=== PATIENT | male | born 1955 | race Caucasian/White ===

== ENCOUNTER 2021-10-05 14:03 | Inpatient (IN) | payer OTHER, SELFPAY ==
[2021-10-05] VITALS (12 sets, daily range): BP systolic 166–193; BP diastolic 52–86; PULSE 79–92; RESP 17–26; TEMP 36.6–37.4; O2SAT 92–99; BMI 38.5
--- NOTE | 2021-10-05 14:31 | DI.US.S_ITS ---
PROCEDURE: US PERIPH VENOUS LOW EXTREM LT INDICATIONS: LEG PAIN TECHNIQUE: Real-time imaging, as well as color and pulse Doppler interrogation, were performed of the lower extremity deep veins from the inguinal ligament to the popliteal fossa. COMPARISON: None. FINDINGS: The common femoral, femoral and popliteal veins are normally compressible, and free of intraluminal thrombus. Color and pulse Doppler demonstrate normal phasic intraluminal flow. There is normal augmentation response to distal compression maneuver. IMPRESSION: No sonographic evidence of DVT. Dictated by: Sergio Santoyo M.D. on 10/05/2021 at 16:39 Approved by: Sergio Santoyo M.D. on 10/05/2021 at 16:40
[2021-10-05 15:18] LABS: INR 1.2 (0.9-1.3); Prothrombin Time 13.4 SECONDS (10.1-12.7)
[2021-10-05 15:22] LABS: Lactate (Lactic Acid) 1.4 mmol/L (0.7-2.1)
[2021-10-05 15:23] LABS: Alanine Aminotransferase 63 IU/L (<50); Albumin 3.5 g/dL (3.5-5.0); Albumin Globulin Ratio 1.1 (1.0-2.8); Alkaline Phosphatase 290 U/L (38-126); Aspartate Aminotransferase 56 IU/L (17-59); BUN Creatinine Ratio 24.8 (6-22); Bilirubin Total 1.2 mg/dL (0.2-1.3); Blood Urea Nitrogen 26 mg/dL (9-20); Calcium 8.6 mg/dL (8.4-10.2); Carbon Dioxide 24 mmol/L (22-32); Chloride 97 mmol/L (98-107); Estimated Glomerular Filt Rate > 60 mL/min (>60); Globulin 3.1 g/dL (1.7-4.1); Glucose 301 mg/dL (80-110); HEMOLYSIS < 15 (0-50); Lipase 59 U/L (23-300); Potassium 3.9 mmol/L (3.4-5.1); Sodium 128 mmol/L (137-145); Total Protein 6.6 g/dL (6.3-8.2)
[2021-10-05 15:27] LABS: Add Manual Diff / Slide Review NO; Basophils Absolute Auto 100 /uL (0-100); Basophils Percent Auto 0.3 % (0-2); Eosinophils Absolute Auto 100 /uL (0-450); Eosinophils Percent Auto 0.4 % (2-4); Hematocrit 34.7 % (41-53); Hemoglobin 11.5 g/dL (13.5-17.5); Lymphocytes Absolute Auto 500 /uL (1100-4500); Lymphocytes Percent Auto 2.7 % (25-40); Mean Corpuscular Hemoglobin 27.5 PG (26-34); Mean Corpuscular Volume 83.2 fL (80-100); Monocytes Absolute Auto 1000 /uL (0-900); Monocytes Percent Auto 5.4 % (3-14); Neutrophils Absolute Auto 16800 /uL (1500-7000); Neutrophils Percent Auto 91.2 % (50-75); Platelet Count 152 X10^3/uL (150-400); Red Blood Cell Count 4.17 X10^6/uL (4.5-5.9); White Blood Cell Count 18.4 X10^3/uL (4.5-11.0)
[2021-10-05 15:32] LABS: COVID19 -Nasal RAPID Negative (Negative)
--- NOTE | 2021-10-05 17:01 | ED_ITS ---
HPI - Extremity Problem General Chief complaint: Extremity Problem,Nontraumatic Stated complaint: Swelling/ pain in lt low leg x4 days-sent by [facility] Time Seen by Provider: 10/05/21 17:00 Source: patient Mode of arrival: Ambulatory History of Present Illness HPI Narrative: Patient is a 66-year-old male with history of insulin-dependent diabetes, coronary artery disease, hypertension hyperlipidemia presenting today with left leg pain and redness. He said 4 days ago he started having fever and body aches. He fell getting up going to the bathroom 3 days ago. He does not remember an injury. He has been able to weightbear ever since however it was on his left leg and that leg has progressively gotten more painful and red. He says that he may also be experiencing some mild increase in shortness of breath but his biggest complaint is his leg. He denies absolutely any chest pain or palpitations. He denies any cough. No painful or frequent urination. Related Data Home Medications Medication Instructions Recorded Confirmed amlodipine 5 mg tablet 5 mg PO DAILY 10/05/21 10/05/21 atorvastatin 20 mg tablet 20 mg PO DAILY 10/05/21 10/05/21 carvedilol 25 mg tablet 25 mg PO DAILY 10/05/21 10/05/21 empagliflozin 25 mg tablet 25 mg PO DAILY 10/05/21 10/05/21 (Jardiance) famotidine 20 mg tablet 20 mg PO DAILY 10/05/21 10/05/21 glipizide 10 mg tablet 10 mg PO DAILY 10/05/21 10/05/21 insulin NPH isoph U-100 human 100 unit SUBCUT 10/05/21 unit/mL subcutaneous suspension (Humulin N NPH U-100 Insulin (isophane susp)) losartan 50 mg tablet 50 mg PO DAILY 10/05/21 10/05/21 metformin 500 mg tablet,extended 500 mg PO DAILY 10/05/21 10/05/21 release 24 hr Allergies Allergy/AdvReac Type Severity Reaction Status Date / Time promethazine [From Phenergan] AdvReac Vomiting Verified 10/05/21 14:26 Review of Systems Review of Systems Narrative: GENERAL: See HPI HEENT: Denies sinus pain, ear pain, sore throat, difficulty swallowing, neck pain RESPIRATORY: Denies dyspnea, cough, wheezing, hemoptysis, sputum. CARDIOVASCULAR: Denies chest pain, palpitations, orthopnea, edema GASTROINTESTINAL: Denies nausea, vomiting, abdominal pain, diarrhea, constipation, melena. : Denies dysuria, frequency, incontinence, hematuria, urinary retention, flank pain. MUSCULOSKELETAL: See HPI SKIN: See HPI NEUROLOGIC: Denies weakness, dizziness, headache, numbness, change in speech, confusion PSYCHIATRIC: No concerning psychosocial issues. 12 point review of systems is negative except for those stated above and HPI Patient History Social History Smoking Status: Never smoker Smoking Status: Never smoker alcohol intake frequency: holidays/special occasions only Substance Use Type: does not use Exam Initial Vital Signs Initial Vital Signs: Vital Signs Temperature 98 F 10/05/21 14:21 Pulse Rate 79 10/05/21 14:21 Respiratory Rate 17 10/05/21 14:21 Blood Pressure 193/86 H 10/05/21 14:21 Pulse Oximetry 99 10/05/21 14:21 GENERAL: Alert 66-year-old male appears uncomfortable HEENT: Head atraumatic,EOMI, pupils reactive, face symmetric, moist mucous membranes CARDIOVASCULAR: Regular rate and rhythm without murmurs, rubs or gallops. RESPIRATORY: Breath sounds equal bilaterally, no wheezes rales or rhonchi. ABDOMEN: Soft, nontender. Normoactive bowel sounds all 4 quadrants. No guarding or rebound. EXTREMITIES: Normal range of motion, no clubbing or edema. Neurovascularly intact Left leg able to flex and extend the ankle intact distal pedal pulse intact NEUROLOGICAL: Alert and oriented x4.Normal gait and speech. SKIN: Left leg and knee to ankle erythematous swollen tender to touch no draining or weeping Course Orders Ordered: ED Orders 10/05/21 14:31 perip venous low extrem lt Stat 10/05/21 14:52 BNP [NT-proBNP (BNP-Adult 18+)] Stat Complete Blood Count AUTO DIFF Stat Comprehensive Metabolic Panel Stat Lactate (Lactic Acid) Stat Lipase Stat Procalcitonin Stat Prothrombin Time INR Stat Troponin & CK Cardiac Panel Stat 10/05/21 15:10 COVID19 -Nasal RAPID/Pre-Proc Stat 10/05/21 17:09 Chest [XR chest 1V] Stat COVID19 -Nasal RAPID/Pre-Proc Stat 10/05/21 17:30 Blood Culture Stat Trop I [Troponin I] Stat 10/05/21 18:39 XR tibia fibula LT 2V Stat Vancomycin HCl/Dextrose (Vancomycin) 2,000 mg in 400 mls @ 200 mls/hr IV NOW ONE Stop: 10/05/21 20:39 Last Admin: 10/05/21 19:37 Dose: 200 mls/hr Documented by: JESÚS Discontinued Medications Ceftriaxone Sodium 2,000 mg/ (Sodium Chloride) 100 mls @ 200 mls/hr IV NOW ONE Stop: 10/05/21 17:10 Last Infusion: 10/05/21 18:14 Dose: 0 mls/hr Documented by: Admin: 10/05/21 17:42 Dose: 200 mls/hr Documented by: NAMITA Ketorolac Tromethamine (Ketorolac 30 Mg/Ml Vial) 15 mg IV NOW ONE Stop: 10/05/21 18:50 Last Admin: 10/05/21 19:37 Dose: 15 mg Documented by: JESÚS Vital Signs Vital signs: Vital Signs - 8 hr 10/05/21 14:21 10/05/21 17:18 10/05/21 17:50 Temperature 98 F 98.3 F Pulse Rate 79 79 83 Respiratory Rate 17 21 18 Blood Pressure 193/86 H 192/84 H 173/76 H Pulse Oximetry 99 97 97 MDM - Extremity (Nontraumatic) Lab Data Result diagrams: 10/05/21 14:52 10/05/21 14:52 Labs: Lab Results 10/05/21 10/05/21 10/05/21 Range/Units 14:52 14:52 14:52 WBC 18.4 H (4.5-11.0) X10^3/uL RBC 4.17 L (4.5-5.9) X10^6/uL Hgb 11.5 L (13.5-17.5) g/dL Hct 34.7 L (41-53) % MCV 83.2 (80-100) fL MCH 27.5 (26-34) PG MCHC 33.0 (30-36) % RDW 14.0 (11.6-14.8) % Plt Count 152 (150-400) X10^3/uL Neut % (Auto) 91.2 H (50-75) % Lymph % (Auto) 2.7 L (25-40) % [place] % (Auto) 5.4 (3-14) % Eos % (Auto) 0.4 L (2-4) % Baso % (Auto) 0.3 (0-2) % Neut # (Auto) 85630 H (6393-2423) /uL Lymph # (Auto) 500 L (5562-9776) /uL [place] # (Auto) 1000 H (0-900) /uL Eos # (Auto) 100 (0-450) /uL Baso # (Auto) 100 (0-100) /uL PT 13.4 H (10.1-12.7) SECONDS INR 1.2 (0.9-1.3) Sodium 128 L (137-145) mmol/L Potassium 3.9 (3.4-5.1) mmol/L Chloride 97 L (98-107) mmol/L Carbon Dioxide 24 (22-32) mmol/L BUN 26 H (9-20) mg/dL Creatinine 1.05 (0.66-1.25) mg/dL Estimated GFR > 60 (>60) mL/min BUN/Creatinine Ratio 24.8 H (6-22) Glucose 301 H (80-110) mg/dL Lactate (0.7-2.1) mmol/L Calcium 8.6 (8.4-10.2) mg/dL Total Bilirubin 1.2 (0.2-1.3) mg/dL AST 56 (17-59) IU/L ALT 63 H (<50) IU/L Alkaline Phosphatase 290 H (38-126) U/L Total Creatine Kinase (55-170) U/L CK-MB (CK-2) (<2.37) ng/mL CK-MB (CK-2) Rel Index (1.5-5.0) % Troponin I (0.01-0.034) ng/mL NT-Pro-B Natriuret Pep (<125) pg/mL Total Protein 6.6 (6.3-8.2) g/dL Albumin 3.5 (3.5-5.0) g/dL Globulin 3.1 (1.7-4.1) g/dL Albumin/Globulin Ratio 1.1 (1.0-2.8) Lipase 59 (23-300) U/L Procalcitonin 1.60 H (<0.5) ng/mL SARS-CoV-2 (PCR) (Negative) 10/05/21 10/05/21 10/05/21 Range/Units 14:52 14:52 15:10 WBC (4.5-11.0) X10^3/uL RBC (4.5-5.9) X10^6/uL Hgb (13.5-17.5) g/dL Hct (41-53) % MCV (80-100) fL MCH (26-34) PG MCHC (30-36) % RDW (11.6-14.8) % Plt Count (150-400) X10^3/uL Neut % (Auto) (50-75) % Lymph % (Auto) (25-40) % [place] % (Auto) (3-14) % Eos % (Auto) (2-4) % Baso % (Auto) (0-2) % Neut # (Auto) (3307-8796) /uL Lymph # (Auto) (0237-9794) /uL [place] # (Auto) (0-900) /uL Eos # (Auto) (0-450) /uL Baso # (Auto) (0-100) /uL PT (10.1-12.7) SECONDS INR (0.9-1.3) Sodium (137-145) mmol/L Potassium (3.4-5.1) mmol/L Chloride (98-107) mmol/L Carbon Dioxide (22-32) mmol/L BUN (9-20) mg/dL Creatinine (0.66-1.25) mg/dL Estimated GFR (>60) mL/min BUN/Creatinine Ratio (6-22) Glucose (80-110) mg/dL Lactate 1.4 (0.7-2.1) mmol/L Calcium (8.4-10.2) mg/dL Total Bilirubin (0.2-1.3) mg/dL AST (17-59) IU/L ALT (<50) IU/L Alkaline Phosphatase (38-126) U/L Total Creatine Kinase 136 (55-170) U/L CK-MB (CK-2) 2.37 (<2.37) ng/mL CK-MB (CK-2) Rel Index 1.7 (1.5-5.0) % Troponin I 0.059 H (0.01-0.034) ng/mL NT-Pro-B Natriuret Pep 1630 H (<125) pg/mL Total Protein (6.3-8.2) g/dL Albumin (3.5-5.0) g/dL Globulin (1.7-4.1) g/dL Albumin/Globulin Ratio (1.0-2.8) Lipase (23-300) U/L Procalcitonin (<0.5) ng/mL SARS-CoV-2 (PCR) Negative (Negative) 10/05/21 Range/Units 17:30 WBC (4.5-11.0) X10^3/uL RBC (4.5-5.9) X10^6/uL Hgb (13.5-17.5) g/dL Hct (41-53) % MCV (80-100) fL MCH (26-34) PG MCHC (30-36) % RDW (11.6-14.8) % Plt Count (150-400) X10^3/uL Neut % (Auto) (50-75) % Lymph % (Auto) (25-40) % [place] % (Auto) (3-14) % Eos % (Auto) (2-4) % Baso % (Auto) (0-2) % Neut # (Auto) (0557-4540) /uL Lymph # (Auto) (5936-4553) /uL [place] # (Auto) (0-900) /uL Eos # (Auto) (0-450) /uL Baso # (Auto) (0-100) /uL PT (10.1-12.7) SECONDS INR (0.9-1.3) Sodium (137-145) mmol/L Potassium (3.4-5.1) mmol/L Chloride (98-107) mmol/L Carbon Dioxide (22-32) mmol/L BUN (9-20) mg/dL Creatinine (0.66-1.25) mg/dL Estimated GFR (>60) mL/min BUN/Creatinine Ratio (6-22) Glucose (80-110) mg/dL Lactate (0.7-2.1) mmol/L Calcium (8.4-10.2) mg/dL Total Bilirubin (0.2-1.3) mg/dL AST (17-59) IU/L ALT (<50) IU/L Alkaline Phosphatase (38-126) U/L Total Creatine Kinase (55-170) U/L CK-MB (CK-2) (<2.37) ng/mL CK-MB (CK-2) Rel Index (1.5-5.0) % Troponin I 0.060 H (0.01-0.034) ng/mL NT-Pro-B Natriuret Pep (<125) pg/mL Total Protein (6.3-8.2) g/dL Albumin (3.5-5.0) g/dL Globulin (1.7-4.1) g/dL Albumin/Globulin Ratio (1.0-2.8) Lipase (23-300) U/L Procalcitonin (<0.5) ng/mL SARS-CoV-2 (PCR) (Negative) Imaging Data Chest x-ray: Radiologist's Impression: tient: Nehemiah Foster MR#: [id number] : 1955 Acct:[id number] Age/Sex: 66 / M Date of Service: 10/05/21 Loc: ED Accession Number: [id number] ?? Procedure: XR chest 1V Ordering Provider: Maine Jacobs D.O. PROCEDURE:? XR CHEST 1V ? INDICATIONS:? short of breath ? TECHNIQUE:? One view of the chest was acquired.? ? COMPARISON:? None. ? FINDINGS:? ? Surgical changes and devices:? None.? ? Lungs and pleura:? Patchy airspace opacities in the right lung. ? Reduced lung volumes.? No large? pleural effusions or pneumothorax.? ? Mediastinum:? Prominence of the cardiomediastinal silhouette.? ? Bones and chest wall:? No suspicious bony lesions.? Overlying soft tissues appear unremarkable.? ? IMPRESSION:? Patchy airspace opacity in the right lung, concerning for pneumonic infiltrates. ? ? Dictated by: Steven Loving M.D. on 10/05/2021 at 18:05 ? ? Approved by: Steven Loving M.D. on 10/05/2021 at 18:06 ? US - DVT: Radiologist's Impression: Signed Patient: Nehemiah Foster MR#: [id number] : 1955 Acct:[id number] Age/Sex: 66 / M Date of Service: 10/05/21 Loc: Accession Number: [id number] ?? Procedure: US periph venous low extrem lt Ordering Provider: Maine Jacobs D.O. PROCEDURE:? US PERIPH VENOUS LOW EXTREM LT ? INDICATIONS:? LEG PAIN ? TECHNIQUE:? Real-time imaging, as well as color and pulse Doppler interrogation, were performed of the lower extremity deep veins from the inguinal ligament to the popliteal fossa.? ? COMPARISON:? None. ? FINDINGS:? The common femoral, femoral and popliteal veins are normally compressible, and free of intraluminal thrombus.? Color and pulse Doppler demonstrate normal phasic intraluminal flow.? There is normal augmentation response to distal compression maneuver. ? ? IMPRESSION:? No sonographic evidence of DVT. ? ? Dictated by: Sergio Santoyo M.D. on 10/05/2021 at 16:39 ? ? Approved by: Sergio Santoyo M.D. on 10/05/2021 at 16:40? Extremity x-ray #1: Radiologist's Impression: XRay Report Signed Patient: Nehemiah Foster MR#: [id number] : 1955 Acct:[id number] Age/Sex: 66 / M Date of Service: 10/05/21 Loc: 90B-1 Accession Number: [id number] ?? Procedure: XR tibia fibula LT 2V Ordering Provider: Maine Jacobs D.O. PROCEDURE:? XR TIBIA FIBULA LT 2V ? INDICATIONS:? cellulitis r/o gas ? TECHNIQUE:? 2 views of the tibia and fibula were acquired.? ? COMPARISON:? None. ? FINDINGS:? ? Bones:? No acute, displaced fracture.? Superior patellar enthesophyte.? ? Soft tissues:? No suspicious soft tissue calcifications or masses.? Diffuse soft tissue swelling.? No subcutaneous emphysema. ? IMPRESSION:? No subcutaneous emphysema. ? ? Dictated by: Steven Loving M.D. on 10/05/2021 at 19:56 ? ? Approved by: Steven Loving M.D. on 10/05/2021 at 19:57 ? MDM Narrative Medical decision making narrative: Patient is found to have cellulitis of his left leg. He has leukocytosis of 18 and elevated procalcitonin but normal lactic acid. No sign of severe sepsis. He is given Rocephin and vancomycin. Has known coronary artery disease without known CHF a BNP is mildly elevated at 1600 and indeterminate troponins which remain unchanged. Patient denies any chest pain. X-ray lower extremity does not show any gas unlikely to be necrotizing fasciitis. Discharge Plan Departure Patient Disposition: Admitted as Observation Clinical Impression: Cellulitis Admit Date/Time: 10/05/21 18:45 Admit Provider: Yuriy Damico
--- NOTE | 2021-10-05 17:09 | DI.RAD.S_ITS ---
PROCEDURE: XR CHEST 1V INDICATIONS: short of breath TECHNIQUE: One view of the chest was acquired. COMPARISON: None. FINDINGS: Surgical changes and devices: None. Lungs and pleura: Patchy airspace opacities in the right lung. Reduced lung volumes. No large pleural effusions or pneumothorax. Mediastinum: Prominence of the cardiomediastinal silhouette. Bones and chest wall: No suspicious bony lesions. Overlying soft tissues appear unremarkable. IMPRESSION: Patchy airspace opacity in the right lung, concerning for pneumonic infiltrates. Dictated by: Steven Loving M.D. on 10/05/2021 at 18:05 Approved by: Steven Loving M.D. on 10/05/2021 at 18:06
[2021-10-05 17:31] LABS: Creatine Kinase 136 U/L (55-170)
[2021-10-05] MEDS: cefTRIAXone 2,000 MG in SODIUM CHLORIDE 0.9% 100 ML 200 MG IV (17:42)
[2021-10-05 17:44] LABS: NT-proBNP (BNP-Adult 18+) 1630 pg/mL (<125); Troponin I 0.059 ng/mL (0.01-0.034)
[2021-10-05 17:46] LABS: CKMB % Relative Index 1.7 % (1.5-5.0); Creatine Kinase MB 2.37 ng/mL (<2.37)
--- NOTE | 2021-10-05 18:39 | DI.RAD.S_ITS ---
PROCEDURE: XR TIBIA FIBULA LT 2V INDICATIONS: cellulitis r/o gas TECHNIQUE: 2 views of the tibia and fibula were acquired. COMPARISON: None. FINDINGS: Bones: No acute, displaced fracture. Superior patellar enthesophyte. Soft tissues: No suspicious soft tissue calcifications or masses. Diffuse soft tissue swelling. No subcutaneous emphysema. IMPRESSION: No subcutaneous emphysema. Dictated by: Steven Loving M.D. on 10/05/2021 at 19:56 Approved by: Steven Loving M.D. on 10/05/2021 at 19:57
[2021-10-05] MEDS: KETOROLAC 30 MG/ML VIAL 15 MG IV (19:37)
[2021-10-05] MEDS: VANCOMYCIN 2,000 MG/400 ML PIGGYBACK 200 MG IV (19:37)
[2021-10-05] MEDS: INSULIN GLARGINE 100 UNIT/ML 3ML PEN 10 UNIT SUBCUT (21:18)
[2021-10-05] MEDS: INSULIN LISPRO 100 UNIT/ML 3ML VIAL SUBCUT (21:19)
--- NOTE | 2021-10-05 21:29 | PM.HP.1 ---
History of Present Illness History of Present Illness Date Patient Seen: 10/05/21 Time Patient Seen: 22:00 Chief complaint: Swelling/ pain in lt low leg x4 days-sent by [facility] Narrative: Mr. Foster is a 66M with PMH Type 2 DM on insulin, CAD, HTN, HL obesity who presents with leg pain and redness. He notes that he was on the ground a few days ago and used his left knee to push back up. He notes he started 3-4 days ago having fever and myalgias. His left leg began getting painful and red. He has mild shortness breath which he gets when lying in bed. His leg kept worsening which prompted him to come in to the hospital. In the ED workup was done, vitals notable for elevated blood pressure. Labs notable for WBC 18.4, hgb 11.5. Na 138, creatinine 1.05. Procal 1.6. Lactate 1.4. Trop 0.059->0.06. Chest xray showed patchy opacities in the lungs. Vascular ultrasound negative for DVT. Extremity xray negative for acute process. He was ordered for antibiotics and admitted for further treatment. Family history: patient asked and denies any medical issues in family members Social history: no smoking, drinks EtOH rarely Patient History Family & Social History Social History: household members spouse Safety & Behavioral: Feels Safe in Current Yes Environment Been Physically Hurt or No Threatened By a Person Tobacco & Substance use: Smoking Status Never smoker alcohol intake current alcohol intake frequency holiday/special occasion Substance Use Type does not use Meds Home Medications and Allergies Home Medications Medication Instructions Recorded Confirmed Type amlodipine 5 mg tablet 5 mg PO DAILY 10/05/21 10/05/21 History atorvastatin 20 mg tablet 20 mg PO DAILY 10/05/21 10/05/21 History carvedilol 25 mg tablet 25 mg PO DAILY 10/05/21 10/05/21 History empagliflozin 25 mg tablet 25 mg PO DAILY 10/05/21 10/05/21 History (Jardiance) famotidine 20 mg tablet 20 mg PO DAILY 10/05/21 10/05/21 History glipizide 10 mg tablet 10 mg PO DAILY 10/05/21 10/05/21 History insulin NPH isoph U-100 human 100 unit SUBCUT 10/05/21 History unit/mL subcutaneous suspension (Humulin N NPH U-100 Insulin (isophane susp)) losartan 50 mg tablet 50 mg PO DAILY 10/05/21 10/05/21 History metformin 500 mg tablet,extended 500 mg PO DAILY 10/05/21 10/05/21 History release 24 hr Allergies Allergy/AdvReac Type Severity Reaction Status Date / Time promethazine [From Phenergan] AdvReac Vomiting Verified 10/05/21 14:26 Review of Systems Review of Systems Narrative: 14 systems reviewed and negative aside from what is noted in HPI Exam Vital Signs (past 8 hours): - 10/06/21 04:00 Temperature 98.2 F Pulse Rate 86 Respiratory Rate 26 H Blood Pressure 159/63 H Pulse Oximetry 96 Oxygen Delivery Method Room Air Narrative Exam Narrative: GENERAL:? no acute distress HEENT: moist mucous membranes, PERRL NECK: trachea midline, no JVD CV: Regular rate and rhythm without murmurs PULM: coarse breath sounds bilaterally ABD: Soft, nontender.? nondistended, normal bowel sounds, no organomegaly EXT: left leg range of motion intact, left leg swollen from foot to knee SKIN: on left leg erythematous and warm to touch from ankle to knee without fluctuance NEURO: Alert and oriented with no focal deficits Objective Labs Result Diagrams: 10/06/21 04:22 10/06/21 04:22 Labs: Laboratory Results - last 24 hr 10/05/21 10/05/21 10/05/21 14:52 14:52 14:52 WBC 18.4 H RBC 4.17 L Hgb 11.5 L Hct 34.7 L MCV 83.2 MCH 27.5 MCHC 33.0 RDW 14.0 Plt Count 152 Neut % (Auto) 91.2 H Lymph % (Auto) 2.7 L [place] % (Auto) 5.4 Eos % (Auto) 0.4 L Baso % (Auto) 0.3 Neut # (Auto) 36105 H Lymph # (Auto) 500 L [place] # (Auto) 1000 H Eos # (Auto) 100 Baso # (Auto) 100 PT 13.4 H INR 1.2 Sodium 128 L Potassium 3.9 Chloride 97 L Carbon Dioxide 24 BUN 26 H Creatinine 1.05 Estimated GFR > 60 BUN/Creatinine Ratio 24.8 H Glucose 301 H Lactate Calcium 8.6 Total Bilirubin 1.2 AST 56 ALT 63 H Alkaline Phosphatase 290 H Total Creatine Kinase CK-MB (CK-2) CK-MB (CK-2) Rel Index Troponin I NT-Pro-B Natriuret Pep Total Protein 6.6 Albumin 3.5 Globulin 3.1 Albumin/Globulin Ratio 1.1 Lipase 59 Procalcitonin 1.60 H SARS-CoV-2 (PCR) 10/05/21 10/05/21 10/05/21 14:52 14:52 15:10 WBC RBC Hgb Hct MCV MCH MCHC RDW Plt Count Neut % (Auto) Lymph % (Auto) [place] % (Auto) Eos % (Auto) Baso % (Auto) Neut # (Auto) Lymph # (Auto) [place] # (Auto) Eos # (Auto) Baso # (Auto) PT INR Sodium Potassium Chloride Carbon Dioxide BUN Creatinine Estimated GFR BUN/Creatinine Ratio Glucose Lactate 1.4 Calcium Total Bilirubin AST ALT Alkaline Phosphatase Total Creatine Kinase 136 CK-MB (CK-2) 2.37 CK-MB (CK-2) Rel Index 1.7 Troponin I 0.059 H NT-Pro-B Natriuret Pep 1630 H Total Protein Albumin Globulin Albumin/Globulin Ratio Lipase Procalcitonin SARS-CoV-2 (PCR) Negative 10/05/21 10/06/21 10/06/21 17:30 04:22 04:22 WBC 22.0 H RBC 4.22 L Hgb 11.6 L Hct 34.9 L MCV 82.7 MCH 27.4 MCHC 33.2 RDW 14.0 Plt Count 176 Neut % (Auto) 91.4 H Lymph % (Auto) 3.2 L [place] % (Auto) 4.7 Eos % (Auto) 0.4 L Baso % (Auto) 0.3 Neut # (Auto) 41768 H Lymph # (Auto) 700 L [place] # (Auto) 1000 H Eos # (Auto) 100 Baso # (Auto) 100 PT INR Sodium 128 L Potassium 4.0 Chloride 98 Carbon Dioxide 22 BUN 23 H Creatinine 1.05 Estimated GFR > 60 BUN/Creatinine Ratio 21.9 Glucose 233 H Lactate Calcium 8.8 Total Bilirubin AST ALT Alkaline Phosphatase Total Creatine Kinase CK-MB (CK-2) CK-MB (CK-2) Rel Index Troponin I 0.060 H NT-Pro-B Natriuret Pep Total Protein Albumin Globulin Albumin/Globulin Ratio Lipase Procalcitonin SARS-CoV-2 (PCR) Assessment & Plan Assessment & Plan narrative: Mr. Foster is a 66M with PMH Type 2 DM, CAD, obesity who presents with fevers, shortness of breath and left leg pain and redness. 1. Acute cellulitis of extremity -WBC of 18, procal of 1.6 -has infection in most of left leg below knee -xray showed no gas -continue IV vancomycin, and ceftriaxone as well as patient diabetic -follow up blood culture 2. Probable acute pneumonia -patient stating has mild shortness of breath -does have infiltrate on xray -ordered for azithromycin, in addition to vancomycin and ceftriaxone 3. Hyponatremia -etiology probably hypovolemia secondary to infection -encourage oral intake -start IVF if not eating well -other etiology is possible SIADH due to illness 4. Type 2 Diabetes on insulin -hold oral diabetic medications -ordered for 10U lantus -ordered for sliding scale -adjust insulin per blood sugars 5. Obesity -will likely affect healing of infection 6. HTN -continue coreg, amlodipine, and losartan for now 7. CAD with cardiac demand ischemia -continue statin -trop mildly elevated at 0.06 -continue to trend until downtrending -no chest pain, doubt related to ACS -trop likely secondary to demand secondary to infection CODE: Full Proxy: Anabel Foster, I have utilized all available resources to reconcile the patient's home medications Time Spent With Patient Critical Care time: I spent a total of [] minutes of critical care time on this patient's care today; this time is exclusive of procedural time. Quality VTE Deep Vein Thrombosis/Pulmonary Embolism Present on Admission: No MIPS - Admit I confirm the patient?s Advance Care Plan is present, Code status is documented, Surrogate decision maker is in patient?s record [If Yes, STOP here]: Yes
[2021-10-06] VITALS (8 sets, daily range): BP systolic 123–164; BP diastolic 62–66; PULSE 76–87; RESP 18–26; TEMP 36.5–37.1; O2SAT 94–97
[2021-10-06] MEDS: ACETAMINOPHEN 325 MG TABLET 650 MG PO ×2 (01:05→08:04)
[2021-10-06] MEDS: KETOROLAC 30 MG/ML VIAL 15 MG IV (02:12)
[2021-10-06] MEDS: ONDANSETRON 4 MG/2 ML INJ IV (03:20)
[2021-10-06 04:54] LABS: Add Manual Diff / Slide Review NO; Basophils Absolute Auto 100 /uL (0-100); Basophils Percent Auto 0.3 % (0-2); Eosinophils Absolute Auto 100 /uL (0-450); Eosinophils Percent Auto 0.4 % (2-4); Hematocrit 34.9 % (41-53); Hemoglobin 11.6 g/dL (13.5-17.5); Lymphocytes Absolute Auto 700 /uL (1100-4500); Lymphocytes Percent Auto 3.2 % (25-40); Mean Corpuscular HGB Conc 33.2 % (30-36); Mean Corpuscular Hemoglobin 27.4 PG (26-34); Mean Corpuscular Volume 82.7 fL (80-100); Monocytes Absolute Auto 1000 /uL (0-900); Monocytes Percent Auto 4.7 % (3-14); Neutrophils Absolute Auto 20100 /uL (1500-7000); Neutrophils Percent Auto 91.4 % (50-75); Platelet Count 176 X10^3/uL (150-400); Red Blood Cell Count 4.22 X10^6/uL (4.5-5.9)
[2021-10-06 05:10] LABS: BUN Creatinine Ratio 21.9 (6-22); Blood Urea Nitrogen 23 mg/dL (9-20); Calcium 8.8 mg/dL (8.4-10.2); Carbon Dioxide 22 mmol/L (22-32); Chloride 98 mmol/L (98-107); Estimated Glomerular Filt Rate > 60 mL/min (>60); Glucose 233 mg/dL (80-110); HEMOLYSIS < 15 (0-50); Sodium 128 mmol/L (137-145)
--- NOTE | 2021-10-06 06:23 | PC.NURSE ---
admit from ED, arrived via stretcher. dx LLE cellulitis w/ pitting edema. patient is a/o, voices needs. SBA mobility, stands to use urinal/bathroom. ED took blood sugar and gave HS insulin. LLE is red to touch, hot, no weeping. redness outlined w/ sharpie. + pedal pulses. no other skin issues noted, has small scab on R foot great toe. [employer]OC[employer] RO[employer]ER> received ceftriaxone in ED, arrived to floor w/ Vanco infusing. toradol and apap given for pain to LLE. woke up one point w/ slight confusion, i had a dream.... mumbled incoherantly.. took a few min to get re-oriented. neuros WNL. LS clear upon arrival to floor, became congested as the night went on, call to RT to assess. IS and flutter planned by RT.
[2021-10-06 06:52] LABS: Troponin I 0.086 ng/mL (0.01-0.034)
[2021-10-06] MEDS: AZITHROMYCIN 500 MG in DEXTROSE 5% IN WATER 250 ML 250 MG IV (08:04)
[2021-10-06] MEDS: INSULIN LISPRO 100 UNIT/ML 3ML VIAL SUBCUT ×3 (08:12→22:07)
[2021-10-06] MEDS: ENOXAPARIN 40 MG/0.4 ML SYRINGE SUBCUT (09:26)
[2021-10-06] MEDS: carvediloL 12.5 MG TABLET 25 MG PO (09:28)
[2021-10-06] MEDS: LOSARTAN 50 MG TABLET PO (09:28)
[2021-10-06] MEDS: AMLODIPINE 5 MG TABLET PO (09:29)
[2021-10-06] MEDS: ATORVASTATIN 20 MG TABLET PO (09:29)
[2021-10-06] MEDS: VANCOMYCIN 1,750 MG in SODIUM CHLORIDE 0.9% 500 ML 250 MG IV ×2 (10:37→22:06)
--- NOTE | 2021-10-06 13:44 | DI.ECHO.S_ITS ---
[facility]---------+ [facility] +---------+ : : [address] : : : : [id number] : : : : Phone: [phone]+ Echocardiogram Report + + :Name: KASSY NGUYEN Study Date: 10/07/2021 Height: 77 in : :[facility] ReadingLocation: Weight: 325 lb : : Gender: Male BSA: 2.7 m2 : :: 1955 Age: 66 yrs BP: 169/89 mmHg: :Reason For Study: SOB : :Ordering Physician: QUINCY, : :THUY LYONS Performed By: Joel Ramos : :Referring: THUY MATHEW : + + Interpretation Summary The left ventricle is normal in size. Left ventricular systolic function is normal. The ejection fraction is estimated to be 60-65%. There are no focal wall motion abnormalities. Diastolic parameters suggest probable normal left ventricular diastolic function and normal filling pressures. The right ventricle is normal in size and function. Pulmonary artery pressures cannot be estimated because of the lack of a measurable TR jet velocity. Both atria are normal in size. There is no significant valvular heart disease. The aortic root is normal size. Procedure: A two-dimensional transthoracic echocardiogram with color flow and Doppler was performed. The study quality was technically difficult. There is no prior echocardiogram noted for this patient. A contrast injection of Definity was performed to improve assessment of LV function. Left Ventricle: The left ventricle is normal in size. There is mild concentric left ventricular hypertrophy. Left ventricular systolic function is normal. The ejection fraction is estimated to be 60-65%. There are no focal wall motion abnormalities. Diastolic parameters suggest probable normal left ventricular diastolic function and normal filling pressures. Right Ventricle: The right ventricle is normal in size and function. Atria: Both atria are normal in size. The interatrial septum grossly appears intact with no obvious evidence for an atrial septal defect. Mitral Valve: There is mild mitral annular calcification. There is no mitral regurgitation noted. Aortic Valve: The aortic valve is grossly normal. No aortic regurgitation is present. Tricuspid Valve: The tricuspid valve is normal in structure and function. There is trace tricuspid regurgitation. Pulmonary artery pressures cannot be estimated because of the lack of a measurable TR jet velocity. Pulmonic Valve: The pulmonic valve is not well visualized. There is no significant valvular heart disease. Great Vessels: The aortic root is normal size. The ascending aorta could not be visualized. The IVC is dilated (diameter is greater than 2.1 cm) and it collapses less than 50% with a sniff. This suggests a high right atrial pressure of 15 mm Hg. Pericardium/ Pleura There is no pericardial effusion. There is no pleural effusion. MMode/2D Measurements & Calculations LVIDd: 5.1 cm LVOT diam: 2.3 cm LVIDs: 3.3 cm Ao root diam: 3.4 cm FS: 36.0 % IVSd: 1.3 cm LVPWd: 1.4 cm LV philip. diameter/BSA (cm/m^2): 1.9 LV sys. diameter/BSA (cm/m^2): 1.2 LA A2 area: 24.2 cm2 RA long axis: 5.9 cm LA A4 area: 23.4 cm2 RA area: 18.9 cm2 LA length (vol): 6.1 cm RA vol: 51.2 ml LA vol: 78.9 ml RA : 18.6 ml/m2 LA vol index: 28.7 ml/m2 IVC diam: 3.1 cm TAPSE: 2.7 cm Doppler Measurements & Calculations Ao V2 max: 172.1 cm/sec LVOT Max Gilmer: 124.0 cm/sec Ao V2 mean: 126.5 cm/sec LV V1 max P.2 mmHg Ao max P.9 mmHg LV V1 VTI: 26.7 cm Ao mean P.8 mmHg JALEN(I,D): 3.6 cm2 Ao V2 VTI: 32.0 cm JALEN(V,D): 3.1 cm2 sev ratio: 0.83 JALEN indexed to BSA (cm^2/m^2): 1.3 MV E max gilmer: 94.5 cm/sec SV(LVOT): 114.8 ml MV A max gilmer: 79.9 cm/sec MV E/A: 1.2 Med Peak E' Gilmer: 8.7 cm/sec E/E' med: 10.9 Lat Peak E' Gilmer: 8.0 cm/sec E/E' lat: 11.9 E/e' average: 11.4 MV dec time: 0.23 sec Reading Physician:11:49 AM
[2021-10-06 14:07] LABS: Troponin I 0.066 ng/mL (0.01-0.034)
--- NOTE | 2021-10-06 14:53 | PM.PN.1 ---
Subjective Subjective Date Patient Seen: 10/06/21 Interval history: still with redness and swelling of his left lower leg, though he states it is improved today. Feels a bit more short of breath and wheezy today and has trouble taking a breath in. Trouble breathing has been present for a few weeks now. He denies chest pain, palpitations, nausea, or vomiting. Exam Vital Signs (past 8 hours): - 10/06/21 07:00 10/06/21 09:28 10/06/21 09:39 Temperature 97.7 F Pulse Rate 87 Respiratory Rate 18 20 Blood Pressure 164/62 H 164/62 H Pulse Oximetry 97 97 Oxygen Delivery Method Room Air Narrative Exam Narrative: GENERAL:? obese male in no acute distress, though dyspnic with prolonged sentences. HEENT: moist mucous membranes, PERRL NECK: trachea midline, no JVD CV: Regular rate and rhythm without murmurs PULM: coarse breath sounds bilaterally, audible wheezing without stethoscope, may be upper airway ABD: Soft, nontender.? nondistended, normal bowel sounds, no organomegaly EXT: left leg range of motion intact, left leg swollen from foot to knee. trace bilateral non-pitting edema. SKIN: on left leg erythematous and warm to touch from ankle to knee without fluctuance. Shiny appearance to skin. NEURO: Alert and oriented with no focal deficits Objective Labs Result Diagrams: 10/06/21 04:22 10/06/21 04:22 Labs: Laboratory Results - last 24 hr 10/05/21 10/05/21 10/05/21 14:52 14:52 14:52 WBC 18.4 H RBC 4.17 L Hgb 11.5 L Hct 34.7 L MCV 83.2 MCH 27.5 MCHC 33.0 RDW 14.0 Plt Count 152 Neut % (Auto) 91.2 H Lymph % (Auto) 2.7 L [place] % (Auto) 5.4 Eos % (Auto) 0.4 L Baso % (Auto) 0.3 Neut # (Auto) 50854 H Lymph # (Auto) 500 L [place] # (Auto) 1000 H Eos # (Auto) 100 Baso # (Auto) 100 PT 13.4 H INR 1.2 Sodium 128 L Potassium 3.9 Chloride 97 L Carbon Dioxide 24 BUN 26 H Creatinine 1.05 Estimated GFR > 60 BUN/Creatinine Ratio 24.8 H Glucose 301 H Lactate Calcium 8.6 Total Bilirubin 1.2 AST 56 ALT 63 H Alkaline Phosphatase 290 H Total Creatine Kinase CK-MB (CK-2) CK-MB (CK-2) Rel Index Troponin I NT-Pro-B Natriuret Pep Total Protein 6.6 Albumin 3.5 Globulin 3.1 Albumin/Globulin Ratio 1.1 Lipase 59 Procalcitonin 1.60 H SARS-CoV-2 (PCR) 10/05/21 10/05/21 10/05/21 14:52 14:52 15:10 WBC RBC Hgb Hct MCV MCH MCHC RDW Plt Count Neut % (Auto) Lymph % (Auto) [place] % (Auto) Eos % (Auto) Baso % (Auto) Neut # (Auto) Lymph # (Auto) [place] # (Auto) Eos # (Auto) Baso # (Auto) PT INR Sodium Potassium Chloride Carbon Dioxide BUN Creatinine Estimated GFR BUN/Creatinine Ratio Glucose Lactate 1.4 Calcium Total Bilirubin AST ALT Alkaline Phosphatase Total Creatine Kinase 136 CK-MB (CK-2) 2.37 CK-MB (CK-2) Rel Index 1.7 Troponin I 0.059 H NT-Pro-B Natriuret Pep 1630 H Total Protein Albumin Globulin Albumin/Globulin Ratio Lipase Procalcitonin SARS-CoV-2 (PCR) Negative 10/05/21 10/06/21 10/06/21 17:30 04:22 04:22 WBC 22.0 H RBC 4.22 L Hgb 11.6 L Hct 34.9 L MCV 82.7 MCH 27.4 MCHC 33.2 RDW 14.0 Plt Count 176 Neut % (Auto) 91.4 H Lymph % (Auto) 3.2 L [place] % (Auto) 4.7 Eos % (Auto) 0.4 L Baso % (Auto) 0.3 Neut # (Auto) 68328 H Lymph # (Auto) 700 L [place] # (Auto) 1000 H Eos # (Auto) 100 Baso # (Auto) 100 PT INR Sodium 128 L Potassium 4.0 Chloride 98 Carbon Dioxide 22 BUN 23 H Creatinine 1.05 Estimated GFR > 60 BUN/Creatinine Ratio 21.9 Glucose 233 H Lactate Calcium 8.8 Total Bilirubin AST ALT Alkaline Phosphatase Total Creatine Kinase CK-MB (CK-2) CK-MB (CK-2) Rel Index Troponin I 0.060 H NT-Pro-B Natriuret Pep Total Protein Albumin Globulin Albumin/Globulin Ratio Lipase Procalcitonin SARS-CoV-2 (PCR) 10/06/21 10/06/21 04:22 13:18 WBC RBC Hgb Hct MCV MCH MCHC RDW Plt Count Neut % (Auto) Lymph % (Auto) [place] % (Auto) Eos % (Auto) Baso % (Auto) Neut # (Auto) Lymph # (Auto) [place] # (Auto) Eos # (Auto) Baso # (Auto) PT INR Sodium Potassium Chloride Carbon Dioxide BUN Creatinine Estimated GFR BUN/Creatinine Ratio Glucose Lactate Calcium Total Bilirubin AST ALT Alkaline Phosphatase Total Creatine Kinase CK-MB (CK-2) CK-MB (CK-2) Rel Index Troponin I 0.086 H 0.066 H NT-Pro-B Natriuret Pep Total Protein Albumin Globulin Albumin/Globulin Ratio Lipase Procalcitonin SARS-CoV-2 (PCR) [facility] Social History household members: spouse Smoking Status: Never smoker alcohol intake: current Assessment & Plan Assessment & Plan narrative: Mr. Foster is a 66M with PMH Type 2 DM, CAD, obesity who presents with fevers, shortness of breath and left leg pain and redness. 1. Acute cellulitis of extremity -WBC of 18, procal of 1.6 on admission. WBC slight increase today to 22 -has infection in most of left leg below knee -xray showed no gas -continue IV vancomycin, and ceftriaxone as well -follow up blood culture 2. shortness of breath. possible bacterial pneumonia or heart failure of undetermined type. -patient stating has mild shortness of breath for a few weeks -does have infiltrate on xray, may be volume overload -ordered for azithromycin, in addition to vancomycin and ceftriaxone -added lasix today given elevated probnp and CAD. Echo ordered as well. 3. Hyponatremia -etiology probably hypovolemia secondary to infection -encourage oral intake 4. Type 2 Diabetes on insulin -hold oral diabetic medications -ordered for 10U lantus -ordered for sliding scale -adjust insulin per blood sugars 5. Obesity -will likely affect healing of infection and is likely contributing to his shortness of breath. 6. HTN -continue coreg, amlodipine, and losartan for now 7. CAD with cardiac demand ischemia -continue statin -trop mildly elevated at 0.06, increased to 0.08 then downtrended. No further need to follow. -no chest pain, doubt related to ACS -trop likely secondary to demand secondary to infection CODE: Full Proxy: Anabel Foster, I have utilized all available resources to reconcile the patient's home medications Time Spent With Patient Critical Care time: I spent a total of [] minutes of critical care time on this patient's care today; this time is exclusive of procedural time. Quality VTE Deep Vein Thrombosis/Pulmonary Embolism Present on Admission: No
--- NOTE | 2021-10-06 16:01 | PC.NURSE ---
Pt between bed and chair all day. Left lower leg reddened,swollen & tender to touch. pulses + IV RAC intact\patent, started IV ABO's Luings w/wheezes T/O SpO2 96% RA Started lasix. CBg AC breakfast = 212 (3u S/S) AC lunch = 273 (5u S/S) given. Pt 1-2 PA SBA due to pt size & impulsiveness. Call light w/in reach, Bed alarm on for pt safety. Continue w/plan of care.
[2021-10-06] MEDS: FUROSEMIDE 20 MG/2 ML VIAL IV (16:11)
[2021-10-06] MEDS: cefTRIAXone 1,000 MG in SODIUM CHLORIDE 0.9% 100 ML 200 MG IV (17:05)
[2021-10-06] MEDS: SODIUM CHLORIDE 0.9% FLUSH 10 ML IV ×2 (17:59→22:06)
[2021-10-06] MEDS: INSULIN GLARGINE 100 UNIT/ML 3ML PEN 10 UNIT SUBCUT (22:06)
[2021-10-07] VITALS (9 sets, daily range): BP systolic 146–169; BP diastolic 59–89; PULSE 70–90; RESP 18–24; TEMP 36.4–37.2; O2SAT 95–97
[2021-10-07] MEDS: KETOROLAC 30 MG/ML VIAL 15 MG IV ×2 (02:25→17:47)
[2021-10-07] MEDS: ACETAMINOPHEN 325 MG TABLET 650 MG PO ×2 (02:27→09:28)
--- NOTE | 2021-10-07 02:56 | PC.NURSE ---
HS: patient continues w/ audible wheezing, appears SOB w/ exertion, but is able to continue talking thru the wheezing. remains alert and oriented, voices needs. 1pa ADL assistance. due to the lasix received on day shift, UOP is increased. requested a basin and 2 graduates to use for voiding. able to sit EOB and do this independently. small amount of dark green thick sputum, sample sent. tolerating RA, encouraged IS and flutter at bedside w/ a. prn toradol/apap given x 1 for c/o pain to LLE and headache.
[2021-10-07 07:10] LABS: Add Manual Diff / Slide Review NO; Basophils Absolute Auto 100 /uL (0-100); Basophils Percent Auto 0.4 % (0-2); Eosinophils Absolute Auto 100 /uL (0-450); Eosinophils Percent Auto 0.3 % (2-4); Hematocrit 34.5 % (41-53); Hemoglobin 11.3 g/dL (13.5-17.5); Lymphocytes Absolute Auto 1100 /uL (1100-4500); Lymphocytes Percent Auto 5.7 % (25-40); Mean Corpuscular HGB Conc 32.9 % (30-36); Mean Corpuscular Hemoglobin 27.5 PG (26-34); Mean Corpuscular Volume 83.4 fL (80-100); Monocytes Absolute Auto 1200 /uL (0-900); Monocytes Percent Auto 6.1 % (3-14); Neutrophils Absolute Auto 17200 /uL (1500-7000); Neutrophils Percent Auto 87.5 % (50-75); Platelet Count 217 X10^3/uL (150-400); Red Blood Cell Count 4.13 X10^6/uL (4.5-5.9); Red Cell Distribution Width 13.8 % (11.6-14.8); White Blood Cell Count 19.7 X10^3/uL (4.5-11.0)
[2021-10-07 07:40] LABS: BUN Creatinine Ratio 23.9 (6-22); Blood Urea Nitrogen 26 mg/dL (9-20); Calcium 8.3 mg/dL (8.4-10.2); Carbon Dioxide 23 mmol/L (22-32); Chloride 97 mmol/L (98-107); Estimated Glomerular Filt Rate > 60 mL/min (>60); Glucose 268 mg/dL (80-110); HEMOLYSIS < 15 (0-50); Magnesium 1.9 mg/dL (1.6-2.3); Sodium 127 mmol/L (137-145)
[2021-10-07] MEDS: AZITHROMYCIN 500 MG in DEXTROSE 5% IN WATER 250 ML 250 MG IV (07:59)
[2021-10-07] MEDS: INSULIN LISPRO 100 UNIT/ML 3ML VIAL SUBCUT ×4 (08:18→21:44)
[2021-10-07] MEDS: FUROSEMIDE 20 MG/2 ML VIAL IV ×2 (08:33→17:46)
[2021-10-07] MEDS: carvediloL 12.5 MG TABLET 25 MG PO (08:38)
[2021-10-07] MEDS: ENOXAPARIN 40 MG/0.4 ML SYRINGE SUBCUT (08:39)
[2021-10-07] MEDS: ASPIRIN EC 81 MG TABLET PO (08:39)
[2021-10-07] MEDS: AMLODIPINE 5 MG TABLET PO (08:39)
[2021-10-07] MEDS: SODIUM CHLORIDE 0.9% FLUSH 10 ML IV ×2 (08:39→21:44)
[2021-10-07] MEDS: ATORVASTATIN 20 MG TABLET PO (08:39)
[2021-10-07] MEDS: LOSARTAN 50 MG TABLET PO (08:39)
[2021-10-07] MEDS: VANCOMYCIN 1,750 MG in SODIUM CHLORIDE 0.9% 500 ML 250 MG IV ×2 (10:32→21:43)
[2021-10-07] MEDS: VANCOMYCIN TROUGH 1 REQUEST MISC (10:32)
--- NOTE | 2021-10-07 13:42 | PM.PN.1 ---
Subjective Subjective Date Patient Seen: 10/07/21 Interval history: still with redness and swelling of his left lower leg, though he states it is improved today. Breathing is slightly better today after furosemide. He denies chest pain, palpitations, nausea, or vomiting. Exam Vital Signs (past 8 hours): - 10/07/21 08:35 10/07/21 08:38 10/07/21 08:39 Temperature 97.5 F L Pulse Rate 85 85 85 Respiratory Rate 22 Blood Pressure 169/70 H 169/70 H 169/70 H Pulse Oximetry 97 10/07/21 09:27 10/07/21 12:05 Temperature 97.6 F Pulse Rate 70 Respiratory Rate 22 Blood Pressure 146/59 H Pulse Oximetry 96 96 Oxygen Delivery Method Room Air Oxygen Flow Rate 0 Narrative Exam Narrative: GENERAL:? obese male in no acute distress, though dyspnic with prolonged sentences. HEENT: moist mucous membranes, PERRL NECK: trachea midline, no JVD CV: Regular rate and rhythm without murmurs PULM: coarse breath sounds bilaterally, audible wheezing without stethoscope, may be upper airway ABD: Soft, nontender.? nondistended, normal bowel sounds, no organomegaly EXT: left leg range of motion intact, left leg swollen from foot to knee. trace bilateral non-pitting edema. SKIN: on left leg erythematous and warm to touch from ankle to knee without fluctuance. Shiny appearance to skin. NEURO: Alert and oriented with no focal deficits Objective Labs Result Diagrams: 10/07/21 06:53 10/07/21 06:53 Labs: Laboratory Results - last 24 hr 10/06/21 10/07/21 10/07/21 13:18 06:53 06:53 WBC 19.7 H RBC 4.13 L Hgb 11.3 L Hct 34.5 L MCV 83.4 MCH 27.5 MCHC 32.9 RDW 13.8 Plt Count 217 Neut % (Auto) 87.5 H Lymph % (Auto) 5.7 L [place] % (Auto) 6.1 Eos % (Auto) 0.3 L Baso % (Auto) 0.4 Neut # (Auto) 08981 H Lymph # (Auto) 1100 [place] # (Auto) 1200 H Eos # (Auto) 100 Baso # (Auto) 100 Sodium 127 L Potassium 4.0 Chloride 97 L Carbon Dioxide 23 BUN 26 H Creatinine 1.09 Estimated GFR > 60 BUN/Creatinine Ratio 23.9 H Glucose 268 H Calcium 8.3 L Magnesium 1.9 Troponin I 0.066 H Vancomycin Trough 10/07/21 08:53 WBC RBC Hgb Hct MCV MCH MCHC RDW Plt Count Neut % (Auto) Lymph % (Auto) [place] % (Auto) Eos % (Auto) Baso % (Auto) Neut # (Auto) Lymph # (Auto) [place] # (Auto) Eos # (Auto) Baso # (Auto) Sodium Potassium Chloride Carbon Dioxide BUN Creatinine Estimated GFR BUN/Creatinine Ratio Glucose Calcium Magnesium Troponin I Vancomycin Trough 14.0 [facility] Social History household members: spouse Smoking Status: Never smoker alcohol intake: current Assessment & Plan Assessment & Plan narrative: Mr. Foster is a 66M with PMH Type 2 DM, CAD, obesity who presents with fevers, shortness of breath and left leg pain and redness. 1. Acute cellulitis of extremity -WBC of 18, procal of 1.6 on admission. WBC slight increase to 22 on HD 1 but improved today but still at 19.7. -has infection in most of left leg below knee -xray showed no gas -continue IV vancomycin, and ceftriaxone as well -follow up blood culture 2. acute on chronic diastolic heart failure -patient stating has mild shortness of breath for a few weeks -does have infiltrate on xray, but suspect more likely volume overload -ordered for azithromycin, in addition to vancomycin and ceftriaxone -added furosemid with improvement on 10/06. Will discontinue azithro today, 10/07. -echocardiogram showed a normal EF and probable normal diastolic dysfunction. -alternative possibilty is a bacterial pneumonia (unlikely) or obesity hypoventilation. 3. Hyponatremia -etiology probably hypovolemia secondary to infection -encourage oral intake 4. Type 2 Diabetes on insulin -hold oral diabetic medications -ordered for 10U lantus, will increase to 15 U tonight as AM sugar was 268. -ordered for sliding scale -adjust insulin per blood sugars 5. Obesity -will likely affect healing of infection and is likely contributing to his shortness of breath. 6. HTN -continue coreg, amlodipine, and losartan for now 7. CAD with cardiac demand ischemia / myocardial injury -continue statin -trop mildly elevated at 0.06, increased to 0.08 then downtrended. No further need to follow. -no chest pain, doubt related to ACS -trop likely secondary to demand secondary to infection CODE: Full Proxy: Anabel Foster, I have utilized all available resources to reconcile the patient's home medications Time Spent With Patient Critical Care time: I spent a total of [] minutes of critical care time on this patient's care today; this time is exclusive of procedural time. Quality VTE Deep Vein Thrombosis/Pulmonary Embolism Present on Admission: No
--- NOTE | 2021-10-07 15:43 | CM.DANOTE ---
Initial DCP Assessment Note Pt is a 66 yo male, resident of [facility], arrives with Acute cellulitis of extremity and acute on chronic diastolic heart failure. PMH includes Type 2 Diabetes, Obesity, HTN, CAD with cardiac demand ischemia PCP: Not listed in chart Payer: Rubi CARMEN Reviewed chart, met w/patient, introduced role. Patient is wheezing heavily, kept visit brief Patient states he will have spouse to assist upon return home. Patient expected to DC on oral meds According to discussion in morning rounds, patient has not sought the appropriate medical care. Patient would benefit from having a PCP (did not discuss this today w/patient). PT eval might be helpful closer to DC, however, without a PCP patient will not qualify for [facility] services (the only agency available on [facility]) Patient denying needs today from CM team , likely return home w/spouse upon medical clearance NARINDER Stone Discharge Planning/Care Management CM Discharge Assessment Start: 10/06/21 14:45 Freq: Status: Active Protocol: Document 10/07/21 15:38 KEE (Rec: 10/07/21 15:43 KEE [id number]) Discharge Planning Assessment Assigned [employer] NARINDER Harris DPOA/Assigned Designee Name parker Nascimento Contact Information [phone] Advance Directives? No Advance Directives on File No History Provided By Patient Prior Living Arrangements House Household Members spouse Type of transporation used prior to Drives own vehicle admit Independent with ADL's Yes Is patient alert and oriented? Yes Barriers to Discharge No Comment Patient wants to return home w /spouse when medically cleared Discharge Plan Home Transportation Arrangement Family pov Referrals Initiated None needed Additional Comment At this time. Following for needs
[2021-10-07] MEDS: cefTRIAXone 1,000 MG in SODIUM CHLORIDE 0.9% 100 ML 200 MG IV (17:48)
[2021-10-07] MEDS: INSULIN GLARGINE 100 UNIT/ML 3ML PEN 15 UNIT SUBCUT (21:47)
[2021-10-08] VITALS (9 sets, daily range): BP systolic 165–174; BP diastolic 61–75; PULSE 68–97; RESP 16–22; TEMP 36.2–36.6; O2SAT 94–97
[2021-10-08] MEDS: ACETAMINOPHEN 325 MG TABLET 650 MG PO ×3 (00:25→16:31)
[2021-10-08] MEDS: KETOROLAC 30 MG/ML VIAL 15 MG IV ×2 (00:25→22:00)
[2021-10-08 06:32] LABS: Add Manual Diff / Slide Review NO; Basophils Absolute Auto 100 /uL (0-100); Basophils Percent Auto 0.3 % (0-2); Eosinophils Absolute Auto 200 /uL (0-450); Eosinophils Percent Auto 1.6 % (2-4); Hematocrit 33.4 % (41-53); Lymphocytes Absolute Auto 1100 /uL (1100-4500); Lymphocytes Percent Auto 6.8 % (25-40); Mean Corpuscular HGB Conc 32.9 % (30-36); Mean Corpuscular Hemoglobin 27.3 PG (26-34); Monocytes Absolute Auto 900 /uL (0-900); Monocytes Percent Auto 5.5 % (3-14); Neutrophils Absolute Auto 13600 /uL (1500-7000); Neutrophils Percent Auto 85.8 % (50-75); Platelet Count 240 X10^3/uL (150-400); Red Blood Cell Count 4.02 X10^6/uL (4.5-5.9); Red Cell Distribution Width 14.1 % (11.6-14.8); White Blood Cell Count 15.8 X10^3/uL (4.5-11.0)
[2021-10-08 06:38] LABS: HEMOLYSIS < 15 (0-50); Potassium 4.2 mmol/L (3.4-5.1)
[2021-10-08 06:39] LABS: BUN Creatinine Ratio 23.8 (6-22); Blood Urea Nitrogen 31 mg/dL (9-20); Calcium 8.1 mg/dL (8.4-10.2); Carbon Dioxide 23 mmol/L (22-32); Chloride 97 mmol/L (98-107); Estimated Glomerular Filt Rate 60 mL/min (>60); Glucose 287 mg/dL (80-110); Sodium 127 mmol/L (137-145)
[2021-10-08] MEDS: carvediloL 12.5 MG TABLET 25 MG PO (08:30)
[2021-10-08] MEDS: ATORVASTATIN 20 MG TABLET PO (08:31)
[2021-10-08] MEDS: AMLODIPINE 5 MG TABLET PO (08:31)
[2021-10-08] MEDS: ASPIRIN EC 81 MG TABLET PO (08:31)
[2021-10-08] MEDS: LOSARTAN 50 MG TABLET PO (08:31)
[2021-10-08] MEDS: FUROSEMIDE 20 MG/2 ML VIAL IV ×2 (08:31→16:31)
[2021-10-08] MEDS: INSULIN LISPRO 100 UNIT/ML 3ML VIAL SUBCUT ×4 (08:32→21:55)
[2021-10-08] MEDS: ENOXAPARIN 40 MG/0.4 ML SYRINGE SUBCUT (08:48)
[2021-10-08] MEDS: SODIUM CHLORIDE 0.9% FLUSH 10 ML IV ×2 (08:48→21:56)
[2021-10-08] MEDS: VANCOMYCIN 1,750 MG in SODIUM CHLORIDE 0.9% 500 ML 250 MG IV ×2 (11:55→21:57)
--- NOTE | 2021-10-08 16:05 | DIET.CONS ---
Dietary Consultation Note Admission Date: 10/05/2021 18:45 Assessment: 66 y/o M with consult for diabetes. Lantus recently increased to 30u HS + SSI, which will hopefully greatly improve BG. Recently readings have been consistently >200mg/dL and today >250 mg/dL. Including recent fastings. Rec goal for BG between 140-180 mg/dL. If BG cont to be elevated, he may benefit from pre meal insulin and correction vs SSI. Currently pt consuming 45g CHO per meal. Modest insulin dose may be 3u pre meal + correction. Usual DM meds reported: NPH 15u BID, 25mg Jardiance, 1000mg Metformin XR BID, glipizide 10mg BID. Emeka requested to see CDCES and seems very motivated to make some changes for his DM care. Has seen dietitians in the past but no DM ed. Lives in [place], [place], and [place]. [place] for the summer. Today he would like to discuss meal planning and snack options. Reports usual intake of high carb, eating out frequently, and grazing late night. Reports recent HgA1c of 9.5%. Ht: 195.58 cm Wt: 147.418 kg BMI: 38.5 Last BM: 10/07/21 (10/07/21 19:00) MNA: 12 Faustino Score: 18 Diet: 10/06/21 Breakfast Carbohydrate Consistent Diet Diet Modifications: Carbohydrate level: Medium (3 CHO) Nutrition Percent Meal Consumed 100% 10/07/21 19:00 Percent Meal Consumed 100% 10/07/21 18:00 Percent Meal Consumed 75% 10/06/21 18:00 Labs: RBC 4.02 X10^6/uL (4.5-5.9) L 10/08/21 06:22 Hgb 11.0 g/dL (13.5-17.5) L 10/08/21 06:22 Hct 33.4 % (41-53) L 10/08/21 06:22 Creatinine 1.30 mg/dL (0.66-1.25) H 10/08/21 06:22 Lactate 1.4 mmol/L (0.7-2.1) 10/05/21 14:52 NT-Pro-B Natriuret Pep 1630 pg/mL (<125) H 10/05/21 14:52 Nutrition Diagnosis: Nutrition and food related knowledge deficit r/t no DSME aeb pt report ; Excessive CHO intake r/t nutrition related knowledge deficit and stage of change aeb pt report and hgA1c of 9.5% Interventions: 1. Provided MNT for diabetes mgmnt 2. Discussed a meal plan and snack ideas 3. Enc eating q 3-4 hours to reduce over consumption from excessive hunger 4. Enc OP DSME for more comprehensive education. PCP is in [place]. Emeka would like to call insurance for coverage info. Provided billing code detail and my card. EER: 45g CHO per meal and 15-30g CHO per snack Monitoring/Evaluations: Consult prn Electronically Signed by: Kiarra Tellez 10/08/21 16:05 Clinical Dietitian [address] [address]
--- NOTE | 2021-10-08 16:08 | P.PN_ITS ---
Subjective Subjective Date Patient Seen: 10/08/21 Interval history: still with redness and swelling of his left lower leg, though he states it is improved today. Breathing is slightly better today after furosemide. He denies chest pain, palpitations, nausea, or vomiting. Exam Vital Signs (past 8 hours): - 10/08/21 08:30 10/08/21 08:31 10/08/21 11:00 Pulse Rate 70 70 Blood Pressure 165/70 H 165/70 H Pulse Oximetry 96 10/08/21 13:00 Pulse Rate Blood Pressure Pulse Oximetry 96 Oxygen Delivery Method Room Air Oxygen Flow Rate 0 Narrative Exam Narrative: GENERAL:? obese male in no acute distress, though dyspnic with prolonged sentences. HEENT: moist mucous membranes, PERRL NECK: trachea midline, no JVD CV: Regular rate and rhythm without murmurs PULM: coarse breath sounds bilaterally, audible wheezing improved today ABD: Soft, nontender.? nondistended, normal bowel sounds, no organomegaly EXT: left leg range of motion intact, left leg swollen from foot to knee. trace to 1+ edema B/l LE. SKIN: on left leg erythematous and warm to touch from ankle to knee without fluctuance. Shiny appearance to skin. Does appear slightly improved today. NEURO: Alert and oriented with no focal deficits Objective Labs Result Diagrams: 10/08/21 06:22 10/08/21 06:22 Labs: Laboratory Results - last 24 hr 10/08/21 10/08/21 06:22 06:22 WBC 15.8 H RBC 4.02 L Hgb 11.0 L Hct 33.4 L MCV 83.0 MCH 27.3 MCHC 32.9 RDW 14.1 Plt Count 240 Neut % (Auto) 85.8 H Lymph % (Auto) 6.8 L [place] % (Auto) 5.5 Eos % (Auto) 1.6 L Baso % (Auto) 0.3 Neut # (Auto) 97608 H Lymph # (Auto) 1100 [place] # (Auto) 900 Eos # (Auto) 200 Baso # (Auto) 100 Sodium 127 L Potassium 4.2 Chloride 97 L Carbon Dioxide 23 BUN 31 H Creatinine 1.30 H Estimated GFR 60 BUN/Creatinine Ratio 23.8 H Glucose 287 H Calcium 8.1 L Magnesium 2.0 PFSH Social History household members: spouse Smoking Status: Never smoker alcohol intake: current Assessment & Plan Assessment & Plan narrative: Mr. Foster is a 66M with PMH Type 2 DM, CAD, obesity who presents with fevers, shortness of breath and left leg pain and redness. 1. Acute cellulitis of extremity -WBC of 18, procal of 1.6 on admission. WBC slight increase to 22 on HD 1 but improved today now to 16. -has infection in most of left leg below knee -xray showed no gas -continue IV vancomycin, and ceftriaxone as well -cutures negative thus far. 2. acute on chronic diastolic heart failure -patient stating has mild shortness of breath for a few weeks -does have infiltrate on xray, but suspect more likely volume overload -ordered for azithromycin, in addition to vancomycin and ceftriaxone initially for possible bacterial pneumonia -added furosemide with improvement on 10/06. Discontinued azithro 10/07. -echocardiogram showed a normal EF and probable normal diastolic dysfunction. -alternative possibilty is a bacterial pneumonia (unlikely) or obesity hypoventilation. 3. Hyponatremia -etiology probably hypovolemia secondary to infection -encourage oral intake 4. Type 2 Diabetes on insulin -hold oral diabetic medications -ordered for 10U lantus increased to 15 U but still not controlled. Will inc rease to lantus 30 units (normally NPH is 15 U BID for him at home). Add meal time coverage if not improved. -ordered for sliding scale 5. Obesity -will likely affect healing of infection and is likely contributing to his shortness of breath. 6. HTN -continue coreg, amlodipine, and losartan for now 7. CAD with cardiac demand ischemia / myocardial injury -continue statin -trop mildly elevated at 0.06, increased to 0.08 then downtrended. No further need to follow. -no chest pain, doubt related to ACS -trop likely secondary to demand secondary to infection CODE: Full Proxy: Anabel Foster, I have utilized all available resources to reconcile the patient's home medications Time Spent With Patient Critical Care time: I spent a total of [] minutes of critical care time on this patient's care today; this time is exclusive of procedural time. Quality VTE Deep Vein Thrombosis/Pulmonary Embolism Present on Admission: No
[2021-10-08] MEDS: cefTRIAXone 1,000 MG in SODIUM CHLORIDE 0.9% 100 ML 200 MG IV (16:30)
[2021-10-08] MEDS: INSULIN GLARGINE 100 UNIT/ML 3ML PEN 30 UNIT SUBCUT (21:56)
[2021-10-09] MEDS: ACETAMINOPHEN 325 MG TABLET 650 MG PO ×3 (01:31→21:57)
[2021-10-09 07:30] VITALS: O2SAT 98
[2021-10-09 07:31] LABS: BUN Creatinine Ratio 23.1 (6-22); Blood Urea Nitrogen 27 mg/dL (9-20); Calcium 8.6 mg/dL (8.4-10.2); Carbon Dioxide 24 mmol/L (22-32); Chloride 100 mmol/L (98-107); Estimated Glomerular Filt Rate > 60 mL/min (>60); Glucose 265 mg/dL (80-110); HEMOLYSIS < 15 (0-50); Magnesium 2.1 mg/dL (1.6-2.3); Potassium 4.6 mmol/L (3.4-5.1); Sodium 129 mmol/L (137-145)
[2021-10-09 07:41] LABS: Add Manual Diff / Slide Review NO; Basophils Absolute Auto 100 /uL (0-100); Basophils Percent Auto 0.4 % (0-2); Eosinophils Absolute Auto 400 /uL (0-450); Hematocrit 34.8 % (41-53); Hemoglobin 11.5 g/dL (13.5-17.5); Lymphocytes Absolute Auto 1100 /uL (1100-4500); Lymphocytes Percent Auto 6.3 % (25-40); Mean Corpuscular Hemoglobin 27.9 PG (26-34); Mean Corpuscular Volume 84.7 fL (80-100); Monocytes Absolute Auto 1100 /uL (0-900); Monocytes Percent Auto 5.8 % (3-14); Neutrophils Absolute Auto 15600 /uL (1500-7000); Neutrophils Percent Auto 85.5 % (50-75); Platelet Count 323 X10^3/uL (150-400); Red Cell Distribution Width 14.5 % (11.6-14.8); White Blood Cell Count 18.2 X10^3/uL (4.5-11.0)
[2021-10-09 08:00] VITALS: BP 162/62; PULSE 73; RESP 20; TEMP 36.2; O2SAT 97
[2021-10-09 08:48] LABS: Procalcitonin 0.57 ng/mL (<0.5)
[2021-10-09] MEDS: ASPIRIN EC 81 MG TABLET PO (09:22)
[2021-10-09] MEDS: FUROSEMIDE 20 MG/2 ML VIAL IV ×2 (09:22→18:26)
[2021-10-09] MEDS: KETOROLAC 30 MG/ML VIAL 15 MG IV (09:22)
[2021-10-09] MEDS: LOSARTAN 50 MG TABLET PO (09:22)
[2021-10-09] MEDS: carvediloL 12.5 MG TABLET 25 MG PO (09:23)
[2021-10-09] MEDS: ATORVASTATIN 20 MG TABLET PO (09:23)
[2021-10-09] MEDS: AMLODIPINE 5 MG TABLET PO (09:23)
[2021-10-09] MEDS: ENOXAPARIN 40 MG/0.4 ML SYRINGE SUBCUT (09:23)
[2021-10-09] MEDS: SODIUM CHLORIDE 0.9% FLUSH 10 ML IV ×2 (09:27→21:55)
[2021-10-09] MEDS: INSULIN LISPRO 100 UNIT/ML 3ML VIAL SUBCUT ×4 (09:29→21:49)
[2021-10-09] MEDS: VANCOMYCIN 1,750 MG in SODIUM CHLORIDE 0.9% 500 ML 250 MG IV ×2 (10:31→21:24)
--- NOTE | 2021-10-09 15:34 | DI.CT.S_ITS ---
PROCEDURE: CT LE LT W CON INDICATIONS: Left lower leg cellulitis, not responding to abx TECHNIQUE: After the administration of intravenous contrast, 3 mm axial sections acquired of the distal left lower extremity, with coronal and sagittal reformats. COMPARISON: [facility], CR, XR TIBIA FIBULA LT 2V, 10/05/2021, 19:22. [facility], US, US PERIPH VENOUS LOW EXTREM LT, 10/05/2021, 15:36. FINDINGS: Image quality: Excellent. Bones: No findings of lytic bony lesions or periosteal reaction can be seen. Generalized degenerative changes are seen, which are worst involving the medial aspect of the knee. No fractures or dislocations are seen. Soft tissues: Generalized soft tissue swelling can be seen, with subcutaneous edema and fatty stranding. No focal fluid collection is seen to suggest abscess. No significant abnormality of the muscles can be seen. No free air is seen. Calcification and thickening is seen of the distal Achilles tendon, as on series 7, image 61. IMPRESSION: Generalized cellulitis, without findings abscess or soft tissue gas. To the limits of CT, no findings of osteomyelitis are detected. Abnormal distal Achilles tendon. A chronic partial tear is suspected. Dictated by: Alden Garcia M.D. on 10/09/2021 at 15:55 Approved by: Alden Garcia M.D. on 10/09/2021 at 15:57
--- NOTE | 2021-10-09 15:37 | DI.CT.S_ITS ---
PROCEDURE: CT CHEST WO CON INDICATIONS: Short of breath, ?pna on xray, not improving with abx TECHNIQUE: Noncontrast 5 mm thick sections acquired from the pulmonary apices to the posterior costophrenic angles. 1 mm lung window, 5 mm thick coronal and sagittal and 7 mm axial MIP reformats were then acquired. For radiation dose reduction, the following was used: automated exposure control, adjustment of mA and/or kV according to patient size. COMPARISON: [facility], , XR CHEST 1V, 10/05/2021, 17:38. FINDINGS: Image quality: Excellent. Lungs and pleura: There is a small right-sided pleural effusion. Poorly defined opacity can be seen within the right lower lobe. The left lung is relatively clear. No pneumothorax is seen on either side. Mediastinum: Heart size is normal. No pericardial effusion. Pdfa-ia-adakcaoo coronary artery calcification can be seen. Mildly enlarged mediastinal lymph nodes are seen, including a right paratracheal lymph node that measures 11 x 12 mm. Thoracic aorta and central pulmonary arteries are normal in size. Esophagus is normal in caliber. No hiatal hernia. Bones and chest wall: No suspicious bony lesions. Incidental note is made of bilateral gynecomastia. No vertebral body compression fractures. Age-appropriate bony degenerative changes are seen. No axillary or supraclavicular adenopathy by size criteria. Thyroid gland demonstrates no significant noncontrast abnormality. Abdomen: Visualized upper abdominal solid organs and bowel loops appear normal in the absence of contrast. IMPRESSION: Small right-sided pleural effusion with poorly defined right lower lobe opacity, which is attributed to infection. Borderline prominent mediastinal lymph nodes are seen, which are likely reactive. A follow-up noncontrast chest CT is recommended in approximately 3 months to assure clearing. Incidental note is made of: [id number]-rs-udawcoaw coronary artery calcification Gynecomastia Dictated by: Alden Garcia M.D. on 10/09/2021 at 15:32 Approved by: Alden Garcia M.D. on 10/09/2021 at 15:35
[2021-10-09] MEDS: MEROPENEM 500 MG in SODIUM CHLORIDE 0.9% 100 ML 200 MG IV (16:42)
[2021-10-09 17:00] VITALS: BP 172/68; PULSE 66; RESP 22; TEMP 36.6; O2SAT 98
[2021-10-09 19:00] VITALS: O2SAT 97
--- NOTE | 2021-10-09 20:10 | PM.PN.1 ---
Subjective Subjective Date Patient Seen: 10/09/21 Time Patient Seen: 08:00 Interval history: He feels his leg is only marginally improved. He is not particularly concerned about his cough, but this does not seem much improved either. Exam Vital Signs (past 8 hours): - 10/09/21 17:00 Temperature 97.8 F Pulse Rate 66 Respiratory Rate 22 Blood Pressure 172/68 H Pulse Oximetry 98 Oxygen Delivery Method Room Air Oxygen Flow Rate 0 Narrative Exam Narrative: GENERAL:?no acute distress CV: Regular rate and rhythm without murmurs PULM: coarse breath sounds bilaterally, audible wheezing improved today ABD: Soft, nontender.? nondistended, normal bowel sounds, no organomegaly EXT: left leg range of motion intact, left leg swollen from foot to knee, erythema seems lessened SKIN: on left leg erythematous and warm to touch from ankle to knee without fluctuance. Appears improved NEURO: Alert and oriented with no focal deficits Objective Labs Result Diagrams: 10/09/21 06:52 10/09/21 06:52 Labs: Laboratory Results - last 24 hr 10/09/21 10/09/21 10/09/21 06:52 06:52 06:52 WBC 18.2 H RBC 4.10 L Hgb 11.5 L Hct 34.8 L MCV 84.7 MCH 27.9 MCHC 33.0 RDW 14.5 Plt Count 323 Neut % (Auto) 85.5 H Lymph % (Auto) 6.3 L Sharkey % (Auto) 5.8 Eos % (Auto) 2.0 Baso % (Auto) 0.4 Neut # (Auto) 88155 H Lymph # (Auto) 1100 Sharkey # (Auto) 1100 H Eos # (Auto) 400 Baso # (Auto) 100 Sodium 129 L Potassium 4.6 Chloride 100 Carbon Dioxide 24 BUN 27 H Creatinine 1.17 Estimated GFR > 60 BUN/Creatinine Ratio 23.1 H Glucose 265 H Calcium 8.6 Magnesium 2.1 Procalcitonin 0.57 H PFSH Social History household members: spouse Smoking Status: Never smoker alcohol intake: current Assessment & Plan Assessment & Plan narrative: Mr. Foster is a 66M with PMH Type 2 DM, CAD, obesity who presents with fevers, shortness of breath and left leg pain and redness. 1. Acute cellulitis of extremity -WBC of 18, procal of 1.6 on admission. WBC slight increase to 22 on HD 1 but improved today now to 18 -procalcitonin is downtrending -has infection in most of left leg below knee -xray showed no gas -continue IV vancomycin -cutures negative thus far -as improvement is slow ordered ct leg to eval for abscess, broadened ceftriaxone to meropenem -DVT US negative 2. acute on chronic diastolic heart failure -patient stating has mild shortness of breath for a few weeks -does have infiltrate on xray -ordered for azithromycin, in addition to vancomycin and ceftriaxone initially for possible bacterial pneumonia -added furosemide with improvement on 10/06. Discontinued azithro 10/07. -echocardiogram showed a normal EF and probable normal diastolic dysfunction. -CT chest as patient continues to have shortness of breath 3. Hyponatremia -etiology probably hypovolemia secondary to infection -encourage oral intake 4. Type 2 Diabetes on insulin -hold oral diabetic medications -ordered for 10U lantus increased to 15 U but still not controlled. Will increase to lantus 30 units (normally NPH is 15 U BID for him at home). Add meal time coverage if not improved. -ordered for sliding scale 5. Obesity -will likely affect healing of infection and is likely contributing to his shortness of breath. 6. HTN -continue coreg, amlodipine, and losartan for now 7. CAD with cardiac demand ischemia / myocardial injury -continue statin -trop mildly elevated at 0.06, increased to 0.08 then downtrended. No further need to follow. -no chest pain, doubt related to ACS -trop likely secondary to demand secondary to infection CODE: Tax Credit Leasing Consultant Spent With Patient Critical Care time: I spent a total of [] minutes of critical care time on this patient's care today; this time is exclusive of procedural time. Quality VTE Deep Vein Thrombosis/Pulmonary Embolism Present on Admission: No
[2021-10-09 20:25] VITALS: PULSE 75; RESP 20; O2SAT 97
[2021-10-09 21:18] VITALS: BP 184/62; PULSE 75; RESP 18; TEMP 36.6; O2SAT 97
[2021-10-09] MEDS: INSULIN GLARGINE 100 UNIT/ML 3ML PEN 30 UNIT SUBCUT (21:49)
[2021-10-10] VITALS (8 sets, daily range): BP systolic 148–195; BP diastolic 62–76; PULSE 68–76; RESP 16–18; TEMP 36.4–36.6; O2SAT 95–98
[2021-10-10] MEDS: MEROPENEM 500 MG in SODIUM CHLORIDE 0.9% 100 ML 200 MG IV ×5 (01:07→21:10)
[2021-10-10] MEDS: ACETAMINOPHEN 325 MG TABLET 650 MG PO ×3 (03:43→20:54)
[2021-10-10] MEDS: LOSARTAN 50 MG TABLET PO (06:48)
[2021-10-10 06:59] LABS: Hematocrit 34.6 % (41-53); Hemoglobin 11.3 g/dL (13.5-17.5); Mean Corpuscular HGB Conc 32.7 % (30-36); Mean Corpuscular Hemoglobin 27.2 PG (26-34); Mean Corpuscular Volume 83.3 fL (80-100); Platelet Count 334 X10^3/uL (150-400); Red Blood Cell Count 4.16 X10^6/uL (4.5-5.9); Red Cell Distribution Width 14.4 % (11.6-14.8); White Blood Cell Count 16.4 X10^3/uL (4.5-11.0)
[2021-10-10 07:11] LABS: BUN Creatinine Ratio 21.9 (6-22); Blood Urea Nitrogen 23 mg/dL (9-20); Calcium 8.4 mg/dL (8.4-10.2); Carbon Dioxide 24 mmol/L (22-32); Chloride 102 mmol/L (98-107); Estimated Glomerular Filt Rate > 60 mL/min (>60); Glucose 213 mg/dL (80-110); HEMOLYSIS < 15 (0-50); Potassium 4.4 mmol/L (3.4-5.1); Sodium 132 mmol/L (137-145)
[2021-10-10] MEDS: ASPIRIN EC 81 MG TABLET PO (09:36)
[2021-10-10] MEDS: ENOXAPARIN 40 MG/0.4 ML SYRINGE SUBCUT (09:36)
[2021-10-10] MEDS: AMLODIPINE 5 MG TABLET PO (09:36)
[2021-10-10] MEDS: carvediloL 12.5 MG TABLET 25 MG PO (09:36)
[2021-10-10] MEDS: ATORVASTATIN 20 MG TABLET PO (09:36)
[2021-10-10] MEDS: INSULIN LISPRO 100 UNIT/ML 3ML VIAL SUBCUT ×4 (09:39→20:48)
[2021-10-10] MEDS: FUROSEMIDE 20 MG/2 ML VIAL IV ×2 (09:41→17:56)
[2021-10-10] MEDS: KETOROLAC 30 MG/ML VIAL 15 MG IV ×2 (09:47→20:53)
[2021-10-10] MEDS: SODIUM CHLORIDE 0.9% FLUSH 10 ML IV ×2 (09:48→20:57)
[2021-10-10 10:04] LABS: Vancomycin Trough 22.1 ug/mL (10-20)
[2021-10-10] MEDS: VANCOMYCIN 1,250 MG/250 ML PIGGYBACK 250 MG IV (12:28)
--- NOTE | 2021-10-10 14:03 | CM.DPC ---
DCP/continued: Reviewed chart. Met with patient to determine whether or not he has PCP. Patient reports that he resides in [place] half of the year. Patient's PCP is Gabi Hayes in [facility]. Patient and spouse live on [address] during this time of year. Patient reports that he does not anticipate any d/c planning needs but does report that he will need priority boarding pass to return to [place]. CM team to continue to follow. P: Home when stable. OMAR
--- NOTE | 2021-10-10 16:00 | P.PN_ITS ---
Subjective Subjective Date Patient Seen: 10/10/21 Interval history: Today he feels his leg is somewhat improved. Still quite swollen Exam Vital Signs (past 8 hours): - 10/10/21 09:36 10/10/21 11:05 10/10/21 12:56 Temperature 97.8 F Pulse Rate 69 68 Respiratory Rate 16 Blood Pressure 188/75 H 148/62 H Pulse Oximetry 95 98 Oxygen Delivery Method Room Air Oxygen Flow Rate 0 Narrative Exam Narrative: GENERAL:?no acute distress CV: Regular rate and rhythm without murmurs PULM: coarse breath sounds bilaterally, audible wheezing improved today ABD: Soft, nontender.? nondistended, normal bowel sounds, no organomegaly EXT: left leg range of motion intact, left leg swollen from foot to knee, erythema seems lessened SKIN: on left leg erythematous and warm to touch from ankle to knee without fluctuance. Appears improved NEURO: Alert and oriented with no focal deficits Objective Labs Result Diagrams: 10/10/21 06:31 10/10/21 06:31 Labs: Laboratory Results - last 24 hr 10/10/21 10/10/21 10/10/21 06:31 06:31 08:55 WBC 16.4 H RBC 4.16 L Hgb 11.3 L Hct 34.6 L MCV 83.3 MCH 27.2 MCHC 32.7 RDW 14.4 Plt Count 334 Sodium 132 L Potassium 4.4 Chloride 102 Carbon Dioxide 24 BUN 23 H Creatinine 1.05 Estimated GFR > 60 BUN/Creatinine Ratio 21.9 Glucose 213 H Calcium 8.4 Vancomycin Trough 22.1 H* [facility] Social History household members: spouse Smoking Status: Never smoker alcohol intake: current Assessment & Plan Assessment & Plan narrative: Mr. Foster is a 66M with PMH Type 2 DM, CAD, obesity who presents with fevers, shortness of breath and left leg pain and redness. 1. Acute cellulitis of extremity -WBC of 18, procal of 1.6 on admission. WBC slight increase to 22 and down to 16 on 10/10 -procalcitonin is downtrending -has infection in most of left leg below knee -xray showed no gas -continue IV vancomycin -on 10/09 ceftriaxone broadened to meropenem -cutures negative thus far -DVT US negative -CT of extremity consistent with cellulitis and no other pathology noted -suspect slow improvement is related to diabetes 2. acute on chronic diastolic heart failure -patient stating has mild shortness of breath for a few weeks -does have infiltrate on xray -ordered for azithromycin, in addition to vancomycin and ceftriaxone initially for possible bacterial pneumonia -added furosemide with improvement on 10/06. Discontinued azithro 10/07. -echocardiogram showed a normal EF and probable normal diastolic dysfunction. -CT chest as patient continues to have shortness of breath 3. Hyponatremia -etiology probably hypovolemia secondary to infection -encourage oral intake 4. Type 2 Diabetes on insulin -hold oral diabetic medications -ordered for 10U lantus increased to 15 U but still not controlled. Will increase to lantus 30 units (normally NPH is 15 U BID for him at home). Add meal time coverage if not improved. -ordered for sliding scale 5. Obesity -will likely affect healing of infection and is likely contributing to his shortness of breath. 6. HTN -continue coreg, amlodipine, and losartan for now 7. CAD with cardiac demand ischemia / myocardial injury -continue statin -trop mildly elevated at 0.06, increased to 0.08 then downtrended. No further need to follow. -no chest pain, doubt related to ACS -trop likely secondary to demand secondary to infection Time Spent With Patient Critical Care time: I spent a total of [] minutes of critical care time on this patient's care today; this time is exclusive of procedural time. Quality VTE Deep Vein Thrombosis/Pulmonary Embolism Present on Admission: No
[2021-10-10] MEDS: INSULIN GLARGINE 100 UNIT/ML 3ML PEN 30 UNIT SUBCUT (20:48)
[2021-10-11] VITALS (10 sets, daily range): BP systolic 157–191; BP diastolic 61–80; PULSE 66–96; RESP 16–20; TEMP 36.1–36.9; O2SAT 96
[2021-10-11] MEDS: VANCOMYCIN 1,250 MG/250 ML PIGGYBACK 250 MG IV ×2 (00:05→15:28)
[2021-10-11] MEDS: MEROPENEM 500 MG in SODIUM CHLORIDE 0.9% 100 ML 200 MG IV ×4 (04:49→22:11)
[2021-10-11 06:05] LABS: Hematocrit 35.7 % (41-53); Hemoglobin 11.7 g/dL (13.5-17.5); Mean Corpuscular HGB Conc 32.8 % (30-36); Mean Corpuscular Hemoglobin 27.3 PG (26-34); Mean Corpuscular Volume 83.5 fL (80-100); Platelet Count 354 X10^3/uL (150-400); Red Blood Cell Count 4.28 X10^6/uL (4.5-5.9); White Blood Cell Count 17.2 X10^3/uL (4.5-11.0)
[2021-10-11] MEDS: ACETAMINOPHEN 325 MG TABLET 650 MG PO ×2 (06:05→21:20)
[2021-10-11 06:17] LABS: BUN Creatinine Ratio 23.4 (6-22); Blood Urea Nitrogen 26 mg/dL (9-20); Calcium 8.6 mg/dL (8.4-10.2); Carbon Dioxide 26 mmol/L (22-32); Chloride 100 mmol/L (98-107); Estimated Glomerular Filt Rate > 60 mL/min (>60); Glucose 160 mg/dL (80-110); HEMOLYSIS < 15 (0-50); Potassium 4.5 mmol/L (3.4-5.1); Sodium 134 mmol/L (137-145)
[2021-10-11] MEDS: carvediloL 12.5 MG TABLET 25 MG PO ×2 (08:20→21:10)
[2021-10-11] MEDS: ASPIRIN EC 81 MG TABLET PO (08:20)
[2021-10-11] MEDS: ATORVASTATIN 20 MG TABLET PO (08:20)
[2021-10-11] MEDS: AMLODIPINE 5 MG TABLET PO (08:20)
[2021-10-11] MEDS: INSULIN LISPRO 100 UNIT/ML 3ML VIAL SUBCUT ×4 (08:21→21:09)
[2021-10-11] MEDS: ENOXAPARIN 40 MG/0.4 ML SYRINGE SUBCUT (08:21)
[2021-10-11] MEDS: LOSARTAN 50 MG TABLET PO (08:21)
[2021-10-11] MEDS: SODIUM CHLORIDE 0.9% FLUSH 10 ML IV ×2 (08:21→21:10)
[2021-10-11] MEDS: FUROSEMIDE 20 MG/2 ML VIAL IV (08:33)
[2021-10-11] MEDS: KETOROLAC 30 MG/ML VIAL 15 MG IV (08:49)
--- NOTE | 2021-10-11 16:33 | P.PN_ITS ---
Subjective Subjective Date Patient Seen: 10/11/21 Interval history: brief HPI PATIENT BEING TREATED FOR BILATERAL LOWER EXTREMITY SWELLING AND REDNESS CELLULITIS IS SUSPECTED ASSOCIATED WITH SEVERE VENOUS STASIS TODAY NO SIGNIFICANT COMPLAINTS ENQUIRING WHEN HE CAN GO HOME DENIES ANY FEVER OR CHILLS FEELS LIKE HIS EXTREMITIES ARE BETTER HOWEVER REPORTED THAT THE LOWER EXTREMITY EDEMA WORSE TODAY BECAUSE THEY WERE NOT ELEVATED PRIOR TO MY VISIT Exam Vital Signs (past 8 hours): - 10/11/21 08:40 10/11/21 14:56 Temperature 97.2 F L Pulse Rate 69 Respiratory Rate 18 Blood Pressure 166/61 H Pulse Oximetry 96 96 Oxygen Delivery Method Room Air Oxygen Flow Rate 0 Narrative Exam Narrative: NO ACUTE DISTRESS. PATIENT IS ALERT ORIENTED X3. VITAL SIGNS STABLE HEAD ATRAUMATIC NORMOCEPHALIC NECK : SUPPLE WITHOUT ADENOPATHY NO CAROTID BRUITS EYE: EOMI, PERRLA, NORMAL CONJUNCTIVA; NO JAUNDICE CHEST: REGULAR RATE. NO RUBS. PMI IS NON DISPLACED. NO MURMURS; NORMAL S1- S2 PULMONARY: DECREASED BS OVER THE BASES. MILD BIBASILAR CRACKLES NOTED; NO INCREASED DULLNESS TO PERCUSSION ABDOMEN: OBESE BUTSOFT. NONTENDER. NONDISTENDED. BOWEL SOUNDS ARE PRESENT IN ALL 4 QUADRANTS. NO MASS. EXTREMITIES: UNSTAGEABLE PITTING EDEMA TO BILATERAL EXTREMITIES .. NO CYANOSIS CLUBBING NOTED. NEURO: CRANIAL NERVES 2-12 GROSSLY INTACT. NO FOCAL NEUROLOGICAL DEFICIT NOTED. MSK: NORMAL RANGE OF MOTION FOR AGE. NO JOINT EFFUSION. SKIN: REDNESS APPRECIATEDTO BILATERAL LOWER EXTREMITIES. SIGNIFICANT EDEMA ALSO APPRECIATED. : NORMAL EXTERNAL GENITALIA. PSYCH : APPROPRIATE MOOD AND AFFECT. ALERT AWAKE ORIENTED X3 Objective Labs Result Diagrams: 10/11/21 05:38 10/11/21 05:38 Labs: Laboratory Results - last 24 hr 10/11/21 10/11/21 05:38 05:38 WBC 17.2 H RBC 4.28 L Hgb 11.7 L Hct 35.7 L MCV 83.5 MCH 27.3 MCHC 32.8 RDW 14.0 Plt Count 354 Sodium 134 L Potassium 4.5 Chloride 100 Carbon Dioxide 26 BUN 26 H Creatinine 1.11 Estimated GFR > 60 BUN/Creatinine Ratio 23.4 H Glucose 160 H Calcium 8.6 PFSH Social History household members: spouse Smoking Status: Never smoker alcohol intake: current Assessment & Plan Assessment & Plan narrative: IMPRESSION BILATERAL LOWER EXTREMITY CELLULITIS VENOUS STASIS OBESITY LEUKOCYTOSIS ESSENTIAL HYPERTENSION ANEMIA OF CHRONIC DISEASE HYPONATREMIA PLAN PATIENT WILL BE STARTEDON CLINDAMYCIN ROCEPHIN DISCONTINUE VANCOMYCIN DAILY LAB TO FOLLOW CHANGE LASIX TO ORAL TABLETS IN THE NEXT 24 HOURS CONTINUE TO ENCOURAGE PATIENT TO KEEP LOWER EXTREMITY ELEVATED AT ALL TIMES WILL BENEFIT FROM COMPRESSION STOCKING VERSUS COMPRESSION DRESSING DAILY WITH SAME SCALE MONITOR INPUT AND OUTPUT CLOSELY MONITOR ELECTROLYTE CLOSELY WELL PATIENT TO BE OUT OF BED WITH EACH MEAL MOBILIZE MUCH TOLERATED NURSING TO ENCOURAGE PATIENT TO USE INCENTIVE SPIROMETRY DEVICE WHILE AWAKE ADDITIONAL MANAGEMENT PER CLINICAL COURSE Time Spent With Patient Critical Care time: I spent a total of [] minutes of critical care time on this patient's care today; this time is exclusive of procedural time. Quality VTE Deep Vein Thrombosis/Pulmonary Embolism Present on Admission: No
[2021-10-11] MEDS: LACTOBACILLUS ACIDOPHILUS TABLET 1 EACH PO (17:34)
[2021-10-11] MEDS: FUROSEMIDE 40 MG TABLET PO (17:34)
[2021-10-11] MEDS: cefTRIAXone 1,000 MG in SODIUM CHLORIDE 0.9% 100 ML 200 MG IV (18:00)
[2021-10-11] MEDS: INSULIN GLARGINE 100 UNIT/ML 3ML PEN 30 UNIT SUBCUT (21:08)
[2021-10-11] MEDS: CLINDAMYCIN 150 MG CAPSULE 300 MG PO (21:13)
[2021-10-12 01:13] LABS: Vancomycin Trough 19.4 ug/mL (10-20)
[2021-10-12 03:00] VITALS: BP 167/79; PULSE 80; RESP 18; TEMP 36.6; O2SAT 96
[2021-10-12] MEDS: ACETAMINOPHEN 325 MG TABLET 650 MG PO ×2 (03:08→08:33)
[2021-10-12] MEDS: MEROPENEM 500 MG in SODIUM CHLORIDE 0.9% 100 ML 200 MG IV ×2 (03:08→10:25)
[2021-10-12 05:09] LABS: Add Manual Diff / Slide Review NO; Basophils Absolute Auto 0 /uL (0-100); Basophils Percent Auto 0.3 % (0-2); Eosinophils Absolute Auto 300 /uL (0-450); Eosinophils Percent Auto 2.1 % (2-4); Hematocrit 34.1 % (41-53); Hemoglobin 11.5 g/dL (13.5-17.5); Lymphocytes Absolute Auto 1300 /uL (1100-4500); Lymphocytes Percent Auto 9.2 % (25-40); Mean Corpuscular HGB Conc 33.6 % (30-36); Mean Corpuscular Hemoglobin 27.8 PG (26-34); Mean Corpuscular Volume 82.8 fL (80-100); Monocytes Absolute Auto 900 /uL (0-900); Monocytes Percent Auto 6.4 % (3-14); Neutrophils Absolute Auto 12000 /uL (1500-7000); Platelet Count 333 X10^3/uL (150-400); Red Blood Cell Count 4.12 X10^6/uL (4.5-5.9); Red Cell Distribution Width 14.2 % (11.6-14.8); White Blood Cell Count 14.6 X10^3/uL (4.5-11.0)
[2021-10-12 05:16] LABS: Alanine Aminotransferase 60 IU/L (<50); Albumin 3.4 g/dL (3.5-5.0); Alkaline Phosphatase 340 U/L (38-126); Aspartate Aminotransferase 32 IU/L (17-59); BUN Creatinine Ratio 22.9 (6-22); Bilirubin Total 0.7 mg/dL (0.2-1.3); Blood Urea Nitrogen 25 mg/dL (9-20); Calcium 8.5 mg/dL (8.4-10.2); Carbon Dioxide 24 mmol/L (22-32); Chloride 101 mmol/L (98-107); Estimated Glomerular Filt Rate > 60 mL/min (>60); Globulin 3.3 g/dL (1.7-4.1); Glucose 109 mg/dL (80-110); HEMOLYSIS < 15 (0-50); Magnesium 2.1 mg/dL (1.6-2.3); Phosphorous 4.4 mg/dL (2.3-3.7); Potassium 4.7 mmol/L (3.4-5.1); Sodium 132 mmol/L (137-145); Total Protein 6.7 g/dL (6.3-8.2)
--- NOTE | 2021-10-12 05:59 | PC.NURSE ---
NOC Shift Note- Patient encouraged to elevated leg up on pillows. Patient refused. Encouraged patient to used incentive spirometer. Patient refused. Safety measures in place. Call hillman within reach. Will continue to monitor.
[2021-10-12] MEDS: CLINDAMYCIN 150 MG CAPSULE 300 MG PO ×2 (06:32→13:06)
[2021-10-12 07:00] VITALS: BP 195/78; PULSE 67; RESP 18; TEMP 35.9; O2SAT 95; O2SAT 97
[2021-10-12 08:32] VITALS: BP 195/78; PULSE 67
[2021-10-12] MEDS: carvediloL 12.5 MG TABLET 25 MG PO (08:32)
[2021-10-12] MEDS: ATORVASTATIN 20 MG TABLET PO (08:32)
[2021-10-12] MEDS: ENOXAPARIN 40 MG/0.4 ML SYRINGE SUBCUT (08:32)
[2021-10-12] MEDS: AMLODIPINE 5 MG TABLET PO (08:32)
[2021-10-12] MEDS: ASPIRIN EC 81 MG TABLET PO (08:34)
[2021-10-12] MEDS: LOSARTAN 50 MG TABLET PO (08:34)
[2021-10-12] MEDS: LACTOBACILLUS ACIDOPHILUS TABLET 1 EACH PO ×2 (08:37→12:51)
[2021-10-12] MEDS: FUROSEMIDE 40 MG TABLET PO (08:38)
[2021-10-12] MEDS: SODIUM CHLORIDE 0.9% FLUSH 10 ML IV (08:43)
[2021-10-12 10:59] VITALS: BP 154/61; PULSE 68; RESP 19; TEMP 36.1; O2SAT 96
[2021-10-12 11:30] VITALS: O2SAT 97
--- NOTE | 2021-10-12 12:51 | P.DS_ITS ---
History of Present Illness History of Present Illness Date Patient Seen: 10/12/21 Chief complaint: Swelling/ pain in lt low leg x4 days-sent by [facility] Narrative: History of Present Illness Date Patient Seen: 10/05/21 Time Patient Seen: 22:00 Chief complaint: Swelling/ pain in lt low leg x4 days-sent by [facility] Narrative: Mr. Foster is a 66M with PMH Type 2 DM on insulin, CAD, HTN, HL obesity who presents with leg pain and redness. He notes that he was on the ground a few d ays ago and used his left knee to push back up. He notes he started 3-4 days ago having fever and myalgias. His left leg began getting painful and red. He has mild shortness breath which he gets when lying in bed. His leg kept worsening which prompted him to come in to the hospital. In the ED workup was done, vitals notable for elevated blood pressure. Labs notable for WBC 18.4, hgb 11.5. Na 138, creatinine 1.05. Procal 1.6. Lactate 1.4. Trop 0.059->0.06. Chest xray showed patchy opacities in the lungs. Vascular ultrasound negative for DVT. Extremity xray negative for acute process. He was ordered for antibiotics and admitted for further treatment. Family history: patient asked and denies any medical issues in family members Social history: no smoking, drinks EtOH rarely Discharge Providers Provider Date of admission: 10/05/21 18:45 Discharge Date: 10/12/21 Consults: 10/08/21 14:52 Consult to Dietitian, Adult Routine Comment: Reason For Exam: diabetes Discharge provider: Malena Knapp DO Summary Hospital Course Discharge Diagnosis: ?BILATERAL LOWER EXTREMITY CELLULITIS; IMPROVED ; DC ON ABX ?VENOUS STASIS WITH DERMATITIS. DISCHARGED ON BUMEX ?OBESITY P IT BMI OF 39. LIFESTYLE CHANGES RECOMMENDED ?LEUKOCYTOSIS. IMPROVED. CONTINUE ANTIBIOTICS ?ESSENTIAL HYPERTENSION. DISCHARGED ON CARVEDILOL AND NIFEDIPINE ?ANEMIA OF CHRONIC DISEASE. UNSTABLE ?HYPONATREMIA. MILD Hospital Course: THIS IS A SIGNIFICANTLY OBESE 66-YEAR-OLD MALE ADMITTED TO THE HOSPITAL WITH LOWER EXTREMITY CELLULITIS. PATIENT HAS SIGNIFICANT VENOUS STASIS BILATERAL LOWER EXTREMITIES WHICH I SUSPECT COULD HAVE BEEN PLAYING A ROLE IN THIS. HIS LOWER EXTREMITY REDNESS AND SWELLING COULD ALSO HAVE BEEN SEVERE DERMATITIS THE LOWER EXTREMITY EDEMA IS EXTENSIVE. IN ANY CASE PATIENT DENIED HAVING BEEN ON DIURETICS PRIOR TO COMING TO THE HOSPITAL. HE WAS STARTED ON DIURETIC THERAPY HE AND THE SWELLING HAS IMPROVED. PATIENT WAS ALSO STARTED ON ANTIBIOTICS HE HAS BEEN RESPONDING VERY WELL TO THE MANAGEMENT. THE REDNESS AND THE SWELLING ARE REPORTED IMPROVED BY PATIENT. HE WILL BE DISCHARGED ON ANTIBIOTIC THERAPY FOR ANOTHER 10 DAYS. HE HAS WHITE BLOOD CELL COUNT REMAINS SLIGHTLY ELEVATED. PATIENT WILL BE ON CLINDAMYCIN, DOXYCYCLINE WELL LEVAQUIN UNDER 10 DAYS. HE WAS INSTRUCTED TO EAT PLENTY OF YOGURTS WHILE ANTIBIOTICS . LACTOBACILLUS HAS BEEN ORDERED WELL. PATIENT WILL ALSO NEED TO MAINTAIN A STRICT FLUID RESTRICTION OF [id number] CC DAILY UNTIL OTHERWISE ORDERED BY HIS PRIMARY CARE PHYSICIAN PATIENT WILL ALSO NEED TO KEEP HIS LOWER EXTREMITIES ELEVATED AT ALL TIME WHAT SEEDING. RECOMMENDATION IS FOR PATIENT TO WEAR A COMPRESSION STOCKING AT ALL TIMES DURING THE DAY AND TO REMOVE AT NIGHT. ATTENTIVELY COULD WEAR AN MAGGIE BANDAGES WRAPPED IN A 8-FIGURE PATTERN. I SPOKE TO PATIENT HIS AT BEDSIDE. QUESTIONS AND CONCERNS ADDRESSED TO EVERYBODY IN THE ROOM SATISFACTION AND UNDERSTANDING. HE WILL BE DISCHARGED TODAY. ADDITIONAL MANAGEMENT WILL BE DEFERRED TO HIS OUTPATIENT PROVIDERS HIS ACTIVITIES WILL BE TOLERATED CARDIAC DIET IN CONJUNCTION WITH FLUID RESTRICTION OF LESS THAN 2000 CC A DAY FOLLOW-UP WITH PRIMARY CARE PHYSICIAN WITHIN 1-2 WEEKS PATIENT SHOULD HAVE FREQUENT REPEATED LABS ON FOLLOW-UP VISITS Status at Discharge Cognitive/behavioral status at discharge: oriented Functional status at discharge: independent ambulation Overall status at discharge: patient is progressing back to baseline Time Spent with Patient Time spent: Greater than 30 minutes Exam Vital Signs (past 8 hours): - 10/12/21 07:00 10/12/21 08:32 10/12/21 10:59 Temperature 96.7 F L 96.9 F L Pulse Rate 67 67 68 Respiratory Rate 18 19 Blood Pressure 195/78 H 195/78 H 154/61 H Pulse Oximetry 97 96 10/12/21 11:30 Temperature Pulse Rate Respiratory Rate Blood Pressure Pulse Oximetry 97 Oxygen Delivery Method Room Air Oxygen Flow Rate 0 Narrative Exam Narrative: NO ACUTE DISTRESS.? PATIENT IS ALERT ORIENTED X3. VITAL SIGNS STABLE HEAD ATRAUMATIC NORMOCEPHALIC NECK : SUPPLE WITHOUT ADENOPATHY NO CAROTID BRUITS EYE:? EOMI, PERRLA, NORMAL CONJUNCTIVA; NO JAUNDICE CHEST:? REGULAR RATE.? ? NO RUBS.? PMI IS NON DISPLACED.? NO MURMURS; NORMAL S1- S2 PULMONARY:? DECREASED BS OVER THE BASES.? MILD BIBASILAR CRACKLES NOTED; NO INCREASED DULLNESS TO PERCUSSION ABDOMEN: ? OBESE BUTSOFT.? NONTENDER.? NONDISTENDED.? BOWEL SOUNDS ARE PRESENT IN ALL 4 QUADRANTS.? NO MASS. EXTREMITIES:? UNSTAGEABLE PITTING EDEMA TO BILATERAL EXTREMITIES ? ..? NO CYANOSIS CLUBBING NOTED. NEURO:? CRANIAL NERVES 2-12 GROSSLY INTACT. NO FOCAL NEUROLOGICAL DEFICIT NOTED. MSK:? NORMAL RANGE OF MOTION FOR AGE.? NO JOINT EFFUSION. SKIN: ? REDNESS APPRECIATEDTO BILATERAL LOWER EXTREMITIES.? ? SIGNIFICANT EDEMA ALSO APPRECIATED. :? NORMAL EXTERNAL GENITALIA. PSYCH :? APPROPRIATE MOOD AND AFFECT.? ALERT AWAKE ORIENTED X3 Objective Labs Result Diagrams: 10/12/21 04:46 10/12/21 04:46 Labs: Laboratory Results - last 24 hr 10/12/21 10/12/21 10/12/21 00:29 04:46 04:46 WBC 14.6 H RBC 4.12 L Hgb 11.5 L Hct 34.1 L MCV 82.8 MCH 27.8 MCHC 33.6 RDW 14.2 Plt Count 333 Neut % (Auto) 82.0 H Lymph % (Auto) 9.2 L [place] % (Auto) 6.4 Eos % (Auto) 2.1 Baso % (Auto) 0.3 Neut # (Auto) 33182 H Lymph # (Auto) 1300 [place] # (Auto) 900 Eos # (Auto) 300 Baso # (Auto) 0 Sodium 132 L Potassium 4.7 Chloride 101 Carbon Dioxide 24 BUN 25 H Creatinine 1.09 Estimated GFR > 60 BUN/Creatinine Ratio 22.9 H Glucose 109 Calcium 8.5 Phosphorus 4.4 H Magnesium 2.1 Total Bilirubin 0.7 AST 32 ALT 60 H Alkaline Phosphatase 340 H Total Protein 6.7 Albumin 3.4 L Globulin 3.3 Albumin/Globulin Ratio 1.0 Vancomycin Trough 19.4 PFSH Social History household members: spouse Smoking Status: Never smoker alcohol intake: current Discharge Plan Discharge Plan Patient Disposition: Home Discharge orders & Medications Prescriptions: New nifedipine 30 mg Tablet Extended Release 24 Hr 30 mg PO DAILY Qty: 30 3RF carvedilol [Coreg] 12.5 mg Tablet 25 mg PO BID Qty: 60 3RF clindamycin HCl 150 mg Capsule 300 mg PO Q8HR Qty: 30 0RF aspirin 81 mg Tablet,Delayed Release (Dr/Ec) 81 mg PO DAILY Qty: 30 3RF bumetanide 1 mg Tablet 1 mg PO DAILY Qty: 30 3RF insulin lispro [Humalog U-100 Insulin] 100 unit/mL Solution 0 unit SUBCUT ACHS Qty: 10 2RF Lantus Solostar U-100 Insulin 100 unit/mL (3 mL) Insulin Pen 30 unit SUBCUT 2100 Qty: 10 3RF Bacid 1 billion cell- 250 mg Tablet 1 ea PO TIDWM Qty: 90 3RF potassium chloride 10 mEq capsule, extended release 10 meq PO BID Qty: 60 3RF levofloxacin 750 mg tablet 750 mg PO DAILY 10 Days 0RF doxycycline hyclate 100 mg tablet 100 mg PO BID 10 Days Qty: 20 0RF Continued atorvastatin 20 mg tablet 20 mg PO DAILY 0RF famotidine 20 mg Tablet 20 mg PO DAILY 0RF Discontinued losartan 50 mg tablet 50 mg PO DAILY 0RF carvedilol 25 mg tablet 25 mg PO DAILY 0RF glipizide 10 mg tablet 10 mg PO DAILY 0RF amlodipine 5 mg tablet 5 mg PO DAILY 0RF Humulin N NPH U-100 Insulin 100 unit/mL suspension 3 unit SUBCUT USEASDIRECTD 0RF Label Comments: Unknown frequency metformin 500 mg tablet extended release 24 hr 500 mg PO DAILY 0RF Jardiance 25 mg Tablet 25 mg PO DAILY 0RF Diet/Activity/Treatments Diet: Low-fat and Low-sodium Diet comment: FLUID RESTRICTION 1500-1800CC DAILY INCLUDING ALL FLUIDS INTAKE FOR 24HRS Activity: TOLERATED Quality VTE Deep Vein Thrombosis/Pulmonary Embolism Present on Admission: No
[2021-10-12] MEDS: INSULIN LISPRO 100 UNIT/ML 3ML VIAL SUBCUT (13:04)
--- NOTE | 2021-10-12 15:05 | PC.NURSE ---
patient is a/o, voices needs. 1pa ADL and mobility assistance. has telemark poles in room that he uses at home for transfers. LLE remains red, w/ 2-3+ pitting edema. slight weeping noted from top of araya. MD to see patient, aidenmex added to med list. MAGGIE wraps recommended to LE edema, w/ order to get OOB for meals. 1200 noon, patient laying in bed watching phone, encouraged to get OOB to chair for meal. brought a camping chair from home that he uses. d/c orders for this afternoon. patient will shower, get legs wrapped then dc home. encouraged to elevate LE often. patient's [place] will return this afternoon to pick him up. see dc paperwork.
== END 2021-10-12 16:00 | disposition home or self-care (01) | DRG 603 ==
LOC: ED 17:00 → AC 19:00
PROVIDERS: Hospitalist; Internal Medicine; Admitting Provider Internal Medicine; Emergency Provider Emergency Medicine; Referring Provider Emergency Medicine; Visit Provider Internal Medicine
DX: L03.116 Cellulitis of left lower limb (principal); E87.1 Hypo-osmolality and hyponatremia; I24.8 Other forms of acute ischemic heart disease; E11.9 Type 2 diabetes mellitus without complications; E66.9 Obesity, unspecified; I10 Essential (primary) hypertension; I25.10 Atherosclerotic heart disease of native coronary artery without angina pectoris; I87.8 Other specified disorders of veins; L30.9 Dermatitis, unspecified; E78.5 Hyperlipidemia, unspecified; Z20.822 Contact with and (suspected) exposure to COVID-19; Z79.4 Long term (current) use of insulin; Z68.38 Body mass index [BMI] 38.0-38.9, adult
CPT/HCPCS: 36415; 71045; 71250; 73590; 73701; 80048; 80053; 80202; 82550; 82553; 82962; 83605; 83690; 83735; 83880; 84100; 84145; 84484; 85025; 85027; 85610; 87040; 87070; 87205; 87635; 93005; 93306; 93971; 94667; 94760; 96365; 96375; 99284; C9803; J0696; J1650; J1815; J1885; J1940; J2185; J2405; Q9957; Q9967